=== PATIENT | female | born 1945 | race Caucasian/White ===

== ENCOUNTER 2022-07-29 09:37 | Inpatient (IN) ==
--- NOTE | 2022-07-29 10:01 | Emergency Department Note ---
History of Present Illness General Chief complaint: Stroke/CVA Symptoms Stated complaint: STROKE SYMPTOMS Time Seen by Provider: 07/29/22 09:46 Source: patient and family (Son at bedside) History of Present Illness Provider complaint: Slurred speech Onset (ago): minute(s) 45 77-year-old female presents emergency department for slurred speech. Patient reports she has been having headache. Son reports of 45 minutes ago she started slurring her speech. Patient reports that on she was having a headache and slurred speech. They report that they went to [facility] where she had CAT scans and MRI done which were negative and they discharged her with a diagnosis of TIA. Patient reports she has been having headaches since . No fevers. No trauma. No falls. No blood thinners. Allergies Allergy/AdvReac Type Severity Reaction Status Date / Time No Known Allergies Allergy Unverified 07/29/22 13:09 Past Med/Surg History Medical History HTN (hypertension) Leukemia No pertinent family history TIA (transient ischemic attack) Surgical History H/O bone marrow transplant Social History Smoking Status: Never smoker Hx Alcohol Use: No Hx Substance Use: No Preferred Language: Albanian Communication Ability: Effective Technical Associate Required: No Beliefs That Will Affect Care: None Current Living Situation: Alone Feels Safe at Home: Yes Safety Concerns: Feels Safe At This Time Assistive Devices: None Review of Systems A total of 10 systems reviewed and were otherwise negative Physical Exam Vital Signs Vital Signs - 24 hr 07/29/22 10:05 07/29/22 10:10 07/29/22 09:54 Temperature 36.8 C Temperature Source Oral Pulse Rate 76 Pulse Rate from SpO2 Sensor Respiratory Rate 18 16 21 Respiratory Effort / Characteristics Non-Labored Non-Labored Spontaneous Respiratory Depth Normal Normal Respiratory Pattern Regular Blood Pressure 146/78 H Blood Pressure [Left Arm] 169/74 H Blood Pressure Mean 100 Blood Pressure Mean [Left Arm] 105 Blood Pressure Position Lying Blood Pressure Position [Left Arm] Lying Pulse Oximetry 97 97 Oxygen Delivery Method Room Air Room Air Sepsis Recent Fever Within 48 Hours No Sepsis New/Unexplained Change in Mental Status N/A Sepsis Action Taken by Nursing No Action Required 07/29/22 10:10 07/29/22 10:11 07/29/22 10:11 Temperature Temperature Source Pulse Rate 69 Pulse Rate from SpO2 Sensor 70 Respiratory Rate 15 17 Respiratory Effort / Characteristics Respiratory Depth Respiratory Pattern Blood Pressure 169/74 H Blood Pressure [Left Arm] Blood Pressure Mean 105 Blood Pressure Mean [Left Arm] Blood Pressure Position Blood Pressure Position [Left Arm] Pulse Oximetry 95 Oxygen Delivery Method Sepsis Recent Fever Within 48 Hours Sepsis New/Unexplained Change in Mental Status Sepsis Action Taken by Nursing 07/29/22 11:11 07/29/22 10:20 07/29/22 10:30 Temperature Temperature Source Pulse Rate 72 76 Pulse Rate from SpO2 Sensor Respiratory Rate 21 20 Respiratory Effort / Characteristics Respiratory Depth Respiratory Pattern Blood Pressure Blood Pressure [Left Arm] 159/119 H Blood Pressure Mean Blood Pressure Mean [Left Arm] 132 Blood Pressure Position Blood Pressure Position [Left Arm] Pulse Oximetry Oxygen Delivery Method Sepsis Recent Fever Within 48 Hours Sepsis New/Unexplained Change in Mental Status Sepsis Action Taken by Nursing 07/29/22 10:39 07/29/22 10:39 07/29/22 10:40 Temperature Temperature Source Pulse Rate 70 68 Pulse Rate from SpO2 Sensor 70 68 Respiratory Rate 21 20 Respiratory Effort / Characteristics Respiratory Depth Respiratory Pattern Blood Pressure 167/102 H Blood Pressure [Left Arm] Blood Pressure Mean 123 Blood Pressure Mean [Left Arm] Blood Pressure Position Blood Pressure Position [Left Arm] Pulse Oximetry 93 96 Oxygen Delivery Method Sepsis Recent Fever Within 48 Hours Sepsis New/Unexplained Change in Mental Status Sepsis Action Taken by Nursing 07/29/22 10:50 07/29/22 10:58 07/29/22 10:58 Temperature Temperature Source Pulse Rate 72 75 Pulse Rate from SpO2 Sensor 71 75 Respiratory Rate 19 25 H Respiratory Effort / Characteristics Respiratory Depth Respiratory Pattern Blood Pressure 171/101 H Blood Pressure [Left Arm] Blood Pressure Mean 124 Blood Pressure Mean [Left Arm] Blood Pressure Position Blood Pressure Position [Left Arm] Pulse Oximetry 94 94 Oxygen Delivery Method Sepsis Recent Fever Within 48 Hours Sepsis New/Unexplained Change in Mental Status Sepsis Action Taken by Nursing 07/29/22 11:00 07/29/22 11:00 07/29/22 11:04 Temperature Temperature Source Pulse Rate 71 Pulse Rate from SpO2 Sensor 72 Respiratory Rate 21 Respiratory Effort / Characteristics Respiratory Depth Respiratory Pattern Blood Pressure 170/102 H 154/91 H Blood Pressure [Left Arm] Blood Pressure Mean 124 112 Blood Pressure Mean [Left Arm] Blood Pressure Position Blood Pressure Position [Left Arm] Pulse Oximetry 95 Oxygen Delivery Method Sepsis Recent Fever Within 48 Hours Sepsis New/Unexplained Change in Mental Status Sepsis Action Taken by Nursing 07/29/22 11:04 07/29/22 11:10 07/29/22 11:00 Temperature Temperature Source Pulse Rate 76 71 Pulse Rate from SpO2 Sensor 75 72 Respiratory Rate 22 16 Respiratory Effort / Characteristics Respiratory Depth Respiratory Pattern Blood Pressure Blood Pressure [Left Arm] Blood Pressure Mean Blood Pressure Mean [Left Arm] Blood Pressure Position Blood Pressure Position [Left Arm] Pulse Oximetry 93 94 Oxygen Delivery Method Room Air Sepsis Recent Fever Within 48 Hours Sepsis New/Unexplained Change in Mental Status Sepsis Action Taken by Nursing 07/29/22 11:11 07/29/22 11:11 07/29/22 11:15 Temperature Temperature Source Pulse Rate 72 Pulse Rate from SpO2 Sensor 71 Respiratory Rate 18 Respiratory Effort / Characteristics Respiratory Depth Respiratory Pattern Blood Pressure 159/119 H 164/99 H Blood Pressure [Left Arm] Blood Pressure Mean 132 120 Blood Pressure Mean [Left Arm] Blood Pressure Position Blood Pressure Position [Left Arm] Pulse Oximetry 94 Oxygen Delivery Method Sepsis Recent Fever Within 48 Hours Sepsis New/Unexplained Change in Mental Status Sepsis Action Taken by Nursing 07/29/22 11:15 07/29/22 11:30 07/29/22 11:30 Temperature Temperature Source Pulse Rate 70 72 Pulse Rate from SpO2 Sensor 71 70 Respiratory Rate 15 24 Respiratory Effort / Characteristics Respiratory Depth Respiratory Pattern Blood Pressure 169/105 H Blood Pressure [Left Arm] Blood Pressure Mean 126 Blood Pressure Mean [Left Arm] Blood Pressure Position Blood Pressure Position [Left Arm] Pulse Oximetry 94 95 93 Oxygen Delivery Method Sepsis Recent Fever Within 48 Hours Sepsis New/Unexplained Change in Mental Status Sepsis Action Taken by Nursing 07/29/22 11:45 07/29/22 12:00 Temperature 36.9 C 36.8 C Temperature Source Oral Oral Pulse Rate Pulse Rate from SpO2 Sensor Respiratory Rate 18 18 Respiratory Effort / Characteristics Non-Labored Non-Labored Respiratory Depth Normal Normal Respiratory Pattern Regular Regular Blood Pressure Blood Pressure [Left Arm] 167/98 H 102/76 Blood Pressure Mean Blood Pressure Mean [Left Arm] 121 84 Blood Pressure Position Blood Pressure Position [Left Arm] Lying Sitting Pulse Oximetry 97 95 Oxygen Delivery Method Room Air Sepsis Recent Fever Within 48 Hours Sepsis New/Unexplained Change in Mental Status Sepsis Action Taken by Nursing Physical Exam HENT: Exam performed. -Head: Normocephalic and atraumatic. -Right Ear: External ear normal. No mastoid tenderness. -Left Ear: External ear normal. No mastoid tenderness. -Mouth/Throat: The oropharynx is clear and moist. No trismus in the jaw. No dental abscesses or uvula swelling. No oropharyngeal exudate or tonsillar abscesses. EYES: Conjunctivae and EOM are normal. Pupils are equal, round, and reactive to light. Right eye exhibits no discharge. Left eye exhibits no discharge. No scleral icterus. NECK: Normal range of motion. Neck supple. No JVD present. No spinous process tenderness present. No carotid bruit present. No rigidity. No tracheal deviation and normal range of motion present. No Brudzinski's sign and no Kernig's sign noted. CV: Normal rate, regular rhythm, normal heart sounds and intact distal pulses. There is no peripheral edema. Palpable radial pulses bue. PULM/CHEST: Effort normal and breath sounds normal. No respiratory distress. No stridor. She has no wheezes. She has no rales. -Chest Wall: She exhibits no tenderness. ABD: The abdomen is soft. LYMPH: No cervical adenopathy. NEURO: NIHSS: 2 (9:1, 10:1) Course Course 0946: The patient was evaluated in room B3. A complete history and physical exam was performed Cardiac monitoring: An order was placed for continuous cardiac monitoring. The monitor shows a rate of 80 with sinus rhythm Code stroke called for the patient. Administered Medications Discontinued Medications Tenecteplase 21 mg/ Syringe 4.2 mls @ 50.4 mls/min IV NOW ONE; Protocol Stop: 07/29/22 11:10 Last Admin: 07/29/22 11:04 Dose: 50.4 mls/min Documented By: ANAIS Co-signed By: NELIDA Ioversol (Optiray 320 500ml) 105 ml IV ONCE ONE Stop: 07/29/22 10:15 Last Admin: 07/29/22 10:14 Dose: 105 ml Documented By: MATTHEW Labetalol HCl (Labetalol Hcl Iv 5 Mg/Ml 20ml) Confirm Administered Dose 5 mg IV .STK-MED ONE Stop: 07/29/22 10:59 Last Admin: 07/29/22 11:00 Dose: 10 mg Documented By: NELIDA Co-signed By: JOSE Labetalol HCl (Labetalol Hcl Iv 5 Mg/Ml 20ml) 10 mg IV NOW STA Stop: 07/29/22 11:00 Last Admin: 07/29/22 11:19 Dose: Not Given Documented By: NELIDA Sodium Chloride (Sodium Chloride 0.9% 10ml Flush) 20 ml IV NOW STA Stop: 07/29/22 11:00 Last Admin: 07/29/22 11:05 Dose: 20 ml Documented By: JOSE Critical Care Time Critical Care Time: Yes Total Critical Care Time: 57 I have personally spent greater than 57 minutes of critical care time in the direct management of this patient. This includes bedside care, interpretation of diagnostic studies, and testing, discussion with consultants, patient, and family members, and other required patient management activities. This 57 minutes is in excess of all separately billable procedures. Medical Decision Making Laboratory Data Result diagrams: 07/29/22 09:57 07/29/22 09:57 Lab Results 07/29/22 07/29/22 07/29/22 Range/Units 09:52 09:57 09:57 WBC 9.88 (4.8-10.8) K/ul RBC 4.31 (3.93-5.22) M/uL Hgb 14.0 (12.0-16.0) g/dl Hct 43.6 (34.1-44.9) % MCV 101.2 H (80.0-100.0) fL MCH 32.5 (25.0-34.0) pg MCHC 32.1 (32.0-36.0) g/dL RDW Std Deviation 56.1 H (36.4-46.3) fL RDW Coeff of Karl 14.9 H (11.5-14.5) % Plt Count 177 (130-400) K/uL MPV 11.6 (9.4-12.3) fL Immature Gran % (Auto) 3.7 % Neut % (Auto) 73.5 % Lymph % (Auto) 10.5 % Ponce % (Auto) 9.2 % Eos % (Auto) 2.7 % Baso % (Auto) 0.4 % Neut # (Auto) 7.25 H (1.4-6.5) K/uL Lymph # (Auto) 1.04 L (1.2-3.4) K/uL Ponce # (Auto) 0.91 H (0.24-0.82) K/uL Eos # (Auto) 0.27 (0-0.50) K/uL Baso # (Auto) 0.04 (0-0.2) K/uL Immature Gran # (Auto) 0.37 H (0.00-0.02) K/uL PT (9.0-12.0) Seconds INR (0.9-1.1) APTT (21.0-31.0) Seconds PTT Ratio Sodium (136-145) mmol/L Potassium (3.5-5.1) mmol/L Chloride (98-107) mmol/L Carbon Dioxide (21-32) mmol/L Anion Gap (3-11) BUN (6-23) mg/dl Creatinine (0.6-1.2) mg/dl Est Cr Clr Drug Dosing ml/min Est GFR ( Amer) ml/min Est GFR (Non-Af Amer) ml/min BUN/Creatinine Ratio (10-20) Glucose (70-99(Fasting)) mg/dl POC Glucose 274 H (70-99) mg/dl Calcium (8.5-10.1) mg/dl Magnesium (1.7-2.4) mg/dl Total Bilirubin (0.2-1.0) mg/dl AST (13-39) U/L ALT (7-52) U/L Alkaline Phosphatase (34-104) U/L Troponin I High Sens (0-14) pg/ml Total Protein (6.0-8.3) gm/dl Albumin (3.4-5.0) gm/dl Globulin (2.5-4.0) gm/dl Albumin/Globulin Ratio (0.9-2) Blood Type AB Positive Antibody Screen NEGATIVE 07/29/22 07/29/22 Range/Units 09:57 09:57 WBC (4.8-10.8) K/ul RBC (3.93-5.22) M/uL Hgb (12.0-16.0) g/dl Hct (34.1-44.9) % MCV (80.0-100.0) fL MCH (25.0-34.0) pg MCHC (32.0-36.0) g/dL RDW Std Deviation (36.4-46.3) fL RDW Coeff of Karl (11.5-14.5) % Plt Count (130-400) K/uL MPV (9.4-12.3) fL Immature Gran % (Auto) % Neut % (Auto) % Lymph % (Auto) % Ponce % (Auto) % Eos % (Auto) % Baso % (Auto) % Neut # (Auto) (1.4-6.5) K/uL Lymph # (Auto) (1.2-3.4) K/uL Ponce # (Auto) (0.24-0.82) K/uL Eos # (Auto) (0-0.50) K/uL Baso # (Auto) (0-0.2) K/uL Immature Gran # (Auto) (0.00-0.02) K/uL PT 11.2 (9.0-12.0) Seconds INR 1.1 (0.9-1.1) APTT 27.3 (21.0-31.0) Seconds PTT Ratio 1.0 Sodium 137 (136-145) mmol/L Potassium 4.3 (3.5-5.1) mmol/L Chloride 104 (98-107) mmol/L Carbon Dioxide 21 (21-32) mmol/L Anion Gap 12 H (3-11) BUN 24 H (6-23) mg/dl Creatinine 1.96 H (0.6-1.2) mg/dl Est Cr Clr Drug Dosing 27.9 ml/min Est GFR ( Amer) 28.3 ml/min Est GFR (Non-Af Amer) 24.4 ml/min BUN/Creatinine Ratio 12.2 (10-20) Glucose 259 H (70-99(Fasting)) mg/dl POC Glucose (70-99) mg/dl Calcium 9.4 (8.5-10.1) mg/dl Magnesium 1.8 (1.7-2.4) mg/dl Total Bilirubin 1.0 (0.2-1.0) mg/dl AST 36 (13-39) U/L ALT 22 (7-52) U/L Alkaline Phosphatase 54 (34-104) U/L Troponin I High Sens 13.3 (0-14) pg/ml Total Protein 6.7 (6.0-8.3) gm/dl Albumin 4.3 (3.4-5.0) gm/dl Globulin 2.4 L (2.5-4.0) gm/dl Albumin/Globulin Ratio 1.8 (0.9-2) Blood Type Antibody Screen Imaging Data Radiologist's Impression: Chest X-Ray 07/29/22 09:52 XR chest 1V portable HISTORY: 77 years-old Female Stroke Like Symptoms acute strokelike symptoms COMPARISON: CTA neck of same day TECHNIQUE: Portable AP view of the chest FINDINGS: Cardiomediastinal and hilar silhouettes are within normal limits. Atherosclerosis of the aorta. No pneumothorax, pleural effusion, airspace consolidation or overt pulmonary edema. Degenerative changes of the shoulders and spine. Surgical anchor of the left humeral head. IMPRESSION: No acute process. ACT 112: Negative or not required by law. The above report was generated using voice recognition software. It may contain grammatical, syntax or spelling errors. Electronically signed by: Caleb Poe M.D. 07/29/2022 11:[address] 07/29/22 09:52 CT head/brain wo con CLINICAL HISTORY: 77 years-old Female with Stroke Like Symptoms. Acute strokelike symptoms TECHNIQUE: Multiple axial CT images of the head were obtained without contrast. A dose lowering technique was utilized adhering to the principles of ALARA. COMPARISON: CTA had and neck of same day FINDINGS: No acute intracranial hemorrhage, midline shift, intracranial mass, hydrocephalus, territorial ischemia or abnormal extra-axial collection. White matter hypodensities are suggestive of chronic microvascular ischemic disease. Calcifications of the falx cerebri. The calvarium is intact. Prior bilateral lens repair. Surgical anchor within the left humeral head. The paranasal sinuses, mastoid air cells, and middle ear cavities are clear. IMPRESSION: No acute intracranial abnormality. ACT 112: Negative or not required by law. The above report was generated using voice recognition software. It may contain grammatical, syntax or spelling errors. Electronically signed by: Caleb Poe M.D. 07/29/2022 10:43 AM Head CTA 07/29/22 09:52 CT angio neck with con, CT angio head w con CLINICAL HISTORY: 77 years-old Female with Stroke Like Symptoms. Acute strokelike symptoms COMPARISON STUDY: Head CT of same day TECHNIQUE: Following the IV administration of 105 amount of Optiray, CT angiogram of the head and neck was performed from the aortic arch to the skull apex. Images are reviewed in the axial, sagittal, and coronal planes. 3-D MIPS images are created and assessed. IV contrast was administered without complication. All measurements were calculated based on NASCET criteria. A dose lowering technique was utilized adhering to the principles of ALARA. CT DOSE: 1137.74 mGy.cm FINDINGS: Atherosclerosis of the thoracic aortic arch. Patency of the innominate and imaged subclavian arteries. The common carotid arteries are widely patent. There is mild atherosclerotic plaque of the right carotid bulb resulting in less than 50% stenosis of the proximal right ICA. The middle and anterior cerebral arteries are widely patent. Dominant left vertebral artery. Duplicated V1 and proximal V2 segments of the right vertebral artery: 4 may single vertebral artery at the level of C4. The basilar and posterior cerebral arteries are p atent. Mild luminal narrowing of the P1 segment of the right posterior cerebral artery. Cerebral venous sinuses are patent. No abnormal intracranial enhancement identified. No pneumothorax. The lung apices appear clear. Unremarkable soft tissues. Degenerative changes of the cervical spine. IMPRESSION:Unremarkable CTA of the head and neck. ACT 112: Negative or not required by law. The above report was generated using voice recognition software. It may contain grammatical, syntax or spelling errors. Electronically signed by: Caleb oPe M.D. 07/29/2022 10:43 AM Neck CTA 07/29/22 09:52 CT angio neck with con, CT angio head w con CLINICAL HISTORY: 77 years-old Female with Stroke Like Symptoms. Acute strokelike symptoms COMPARISON STUDY: Head CT of same day TECHNIQUE: Following the IV administration of 105 amount of Optiray, CT angiogram of the head and neck was performed from the aortic arch to the skull apex. Images are reviewed in the axial, sagittal, and coronal planes. 3-D MIPS images are created and assessed. IV contrast was administered without complication. All measurements were calculated based on NASCET criteria. A dose lowering technique was utilized adhering to the principles of ALARA. CT DOSE: 1137.74 mGy.cm FINDINGS: Atherosclerosis of the thoracic aortic arch. Patency of the innominate and imaged subclavian arteries. The common carotid arteries are widely patent. There is mild atherosclerotic plaque of the right carotid bulb resulting in less than 50% stenosis of the proximal right ICA. The middle and anterior cerebral arteries are widely patent. Dominant left vertebral artery. Duplicated V1 and proximal V2 segments of the right vertebral artery: 4 may single vertebral artery at the level of C4. The basilar and posterior cerebral arteries are patent. Mild luminal narrowing of the P1 segment of the right posterior cerebral artery. Cerebral venous sinuses are patent. No abnormal intracranial enhancement identified. No pneumothorax. The lung apices appear clear. Unremarkable soft tissues. Degenerative changes of the cervical spine. IMPRESSION:Unremarkable CTA of the head and neck. ACT 112: Negative or not required by law. The above report was generated using voice recognition software. It may contain grammatical, syntax or spelling errors. Electronically signed by: Caleb Poe M.D. 07/29/2022 10:43 AM ECG Data Indication: + other (cva) Rate (beats per minute): 70 Rhythm: + normal sinus ECG ST segments: + Normal ST segments Additional Comments: NC 202 QRS 138 QTC 476. Left bundle branch block present. sgarbosa negative MDM Narrative Code stroke was called for the patient on arrival. Patient was evaluated by stroke telehealth Dr. Dr. Yeh. There was some significant delay due to their being electronic issues with cardiac not working in the telestroke doctor having difficulties accessing the CT images and reports. There is also an extended period of time however waiting for platelet count given the patient's history of lymphoma. The CT of the head CTA of the head and neck eventually did come back negative. Telestroke doctor did spend a lot of time discussing with the family the risks and benefits of TNKase. Family discussed for quite some time amongst himself if they want to proceed with the TNKase and eventually were consented by the telestroke doctor for TNKase. TNKase was ordered and 10 mg of labetalol were also ordered for the patient. Patient will be admitted to the [facility] team and replaced in the ICU. Impression & Plan CVA (cerebral vascular accident) Discharge Plan Visit Data Chief Complaint: Stroke/CVA Symptoms Stated Complaint: STROKE SYMPTOMS ED Provider: Roberth Hendrix Discharge Problem: CVA (cerebral vascular accident) Patient Disposition: Admitted As Inpatient Discharge Instructions Interventions: ED Discharge Assessment Last Done: 07/29/22 12:30
[2022-07-29 10:09] LABS: Basophils # (auto) 0.04 K/uL (0-0.2); Basophils % (auto) 0.4 %; Eosinophils # (auto) 0.27 K/uL (0-0.50); Eosinophils % (auto) 2.7 %; Hematocrit (blood only) 43.6 % (34.1-44.9); Immature Granulocytes # (auto) 0.37 K/uL (0.00-0.02); Immature Granulocytes % (auto) 3.7 %; Lymphocytes # (auto) 1.04 K/uL (1.2-3.4); Lymphocytes % (auto) 10.5 %; Mean Corpuscular Hemoglobin 32.5 pg (25.0-34.0); Mean Corpuscular Hgb Conc 32.1 g/dL (32.0-36.0); Mean Corpuscular Volume 101.2 fL (80.0-100.0); Mean Platelet Volume 11.6 fL (9.4-12.3); Monocytes # (auto) 0.91 K/uL (0.24-0.82); Monocytes % (auto) 9.2 %; Neutrophils # (auto) 7.25 K/uL (1.4-6.5); Neutrophils % (auto) 73.5 %; Platelet Count 177 K/uL (130-400); RDW Coefficient of Variation 14.9 % (11.5-14.5); RDW Standard Deviation 56.1 fL (36.4-46.3); Red Blood Count 4.31 M/uL (3.93-5.22); White Blood Count 9.88 K/ul (4.8-10.8)
[2022-07-29] MEDS ORDERED: OPTIRAY 320 500ml IV ONE (10:14)
[2022-07-29 10:24] LABS: INR 1.1 (0.9-1.1); Partial Thromboplastin Time 27.3 Seconds (21.0-31.0); Prothrombin Time 11.2 Seconds (9.0-12.0)
[2022-07-29 10:35] LABS: Troponin I High Sensitivity 13.3 pg/ml (0-14)
--- NOTE | 2022-07-29 10:54 | CT Scan Report ---
CT angio neck with con, CT angio head w con CLINICAL HISTORY: 77 years-old Female with Stroke Like Symptoms. Acute strokelike symptoms COMPARISON STUDY: Head CT of same day TECHNIQUE: Following the IV administration of 105 amount of Optiray, CT angiogram of the head and nec k was performed from the aortic arch to the skull apex. Images are reviewed in the axial, sagittal, a nd coronal planes. 3-D MIPS images are created and assessed. IV contrast was administered without com plication. All measurements were calculated based on NASCET criteria. A dose lowering technique was utilized adhering to the principles of ALARA. CT DOSE: 1137.74 mGy.cm FINDINGS: Atherosclerosis of the thoracic aortic arch. Patency of the innominate and imaged subclavian arteries . The common carotid arteries are widely patent. There is mild atherosclerotic plaque of the right ca rotid bulb resulting in less than 50% stenosis of the proximal right ICA. The middle and anterior cer ebral arteries are widely patent. Dominant left vertebral artery. Duplicated V1 and proximal V2 segme nts of the right vertebral artery: 4 may single vertebral artery at the level of C4. The basilar and posterior cerebral arteries are patent. Mild luminal narrowing of the P1 segment of the right posteri or cerebral artery. Cerebral venous sinuses are patent. No abnormal intracranial enhancement identifi ed. No pneumothorax. The lung apices appear clear. Unremarkable soft tissues. Degenerative changes of the cervical spine. IMPRESSION:Unremarkable CTA of the head and neck. ACT 112: Negative or not required by law. The above report was generated using voice recognition software. It may contain grammatical, syntax o r spelling errors. Electronically signed by: Caleb Poe M.D. 07/29/2022 10:43 AM
--- NOTE | 2022-07-29 10:54 | CT Scan Report ---
CT head/brain wo con CLINICAL HISTORY: 77 years-old Female with Stroke Like Symptoms. Acute strokelike symptoms TECHNIQUE: Multiple axial CT images of the head were obtained without contrast. A dose lowering tech nique was utilized adhering to the principles of ALARA. COMPARISON: CTA had and neck of same day FINDINGS: No acute intracranial hemorrhage, midline shift, intracranial mass, hydrocephalus, territorial ischem ia or abnormal extra-axial collection. White matter hypodensities are suggestive of chronic microvasc ular ischemic disease. Calcifications of the falx cerebri. The calvarium is intact. Prior bilateral lens repair. Surgical anchor within the left humeral head. T he paranasal sinuses, mastoid air cells, and middle ear cavities are clear. IMPRESSION: No acute intracranial abnormality. ACT 112: Negative or not required by law. The above report was generated using voice recognition software. It may contain grammatical, syntax o r spelling errors. Electronically signed by: Caleb Poe M.D. 07/29/2022 10:43 AM
[2022-07-29 10:56] LABS: Albumin Globulin Ratio 1.8 (0.9-2); Albumin Level 4.3 gm/dl (3.4-5.0); BUN Creatinine Ratio 12.2 (10-20); Calcium 9.4 mg/dl (8.5-10.1); Creatinine Clr Calc Pharmacy 27.9 ml/min; Est GFR (African American) 28.3 ml/min; Est GFR (Non-African American) 24.4 ml/min; Globulin 2.4 gm/dl (2.5-4.0); Magnesium 1.8 mg/dl (1.7-2.4); Potassium 4.3 mmol/L (3.5-5.1); Total Protein 6.7 gm/dl (6.0-8.3)
[2022-07-29] MEDS ORDERED: LABETALOL HCL IV 5 MG/ML 20ML IV ONE (10:58)
[2022-07-29] MEDS ORDERED: SODIUM CHLORIDE 0.9% 10ML FLUSH IV STA (10:59)
[2022-07-29] MEDS ORDERED: LABETALOL HCL IV 5 MG/ML 20ML IV STA (10:59)
[2022-07-29] MEDS ORDERED: STAT IV STA (10:59)
[2022-07-29] MEDS ORDERED: No Aspirin within 24hrs of THROMBOLYTIC-Stroke PO SCH (11:00)
[2022-07-29] MEDS ORDERED: TENECTEPLASE 21 MG in SYRINGE 0 ML IV ONE (11:09)
--- NOTE | 2022-07-29 11:16 | History & Physical Report ---
Date of Service July 29, 2022 Assessment & Plan (1) CVA (cerebral vascular accident): Plan: LKW initially reported to be 7:30 AM, 9:10 AM Admitted to ICU status post TPA. Head CT without contrast 24 hours s/p TPA administration to evaluate for hemorrhagic stroke conversion and/or with any neurological changes. MRI, routine, tomorrow. Echo in a.m. CBC, BMP, HbA1c, PT/INR, lipid panel in a.m. * Patient observed overnight at [facility] in ED 07/26-07/27 for TIA--working on obtaining records of visit however expect a delay in obtaining these as medical record staff are not there today and previous visits that are > 72 hours in the past cannot be accessed and transferred for our records. N.p.o. for now--did pass bedside dysphagia screen in ED. PT, OT, ST to evaluate in a.m. Labetalol 10 mg every 15 IV as needed, defer to ICU for continued IV boluses versus drip, goal SBP < 180, DBP <100 unless stated otherwise emergency services professional. Avoid hypotension, hypoglycemia. Frequent NIH/neurochecks. CTA of head and neck as above, no significant stenosis. Prevention measures: Start aspirin appropriate; statin therapy is appropriate, BP control. Telemetry for 24 hours, evaluate for episodes of atrial fibrillation. (2) HTN (hypertension): Plan: CORPORATE RESPONSIBILITY OFFICER--> Atenolol 25 mg daily. (3) Leukemia: Plan: History of, s/p bone marrow transplant in 2014. In remission, follows with [place] oncologist every 6 months for labs, routine follow-up. Plan - Admitted to ICU s/p TNK. - SCDs; chemoppx deferred due to TNKase. - Full Code. History of Present Illness Chief Complaint: slurred speech, facial droop this AM Primary Care Provider: NO PCP Mary Ann Louie is a 77-year-old female with past medical history significant for leukemia s/p bone marrow transplant 5 years ago currently in remission, hypertension, and TIA earlier this week who presents today with complaints of slurred speech . 3 days ago on she had a left frontal headache and slurred speech and was seen at [facility]. She was kept overnight for observation in the ED, CT scan and MRI were negative for CVA. She continued to have a headache, now located posteriorly with associated nausea and mild dizziness on occasion, and had an episode of facial droop and slurred speech this morning. LKW 0730 this morning, patient was speaking with her family on the phone and seemed in her normal state of health, and then around [id number] is 1 slurred speech was noted. Describes a sense of knowing what she wants to say, but not able to "use her words ", more consistent with a dysarthria than an apraxia or aphasia. Without any numbness, weakness, tingling. No swallowing difficulties, visual changes. At the time of my visit, she feels her speech is near her baseline. Telestroke neurologist was consulted, recommending TNKase, which is administered at 1104. She presented today hypertensive, SBP [id number], DBP 70-120 since arrival, she did receive 5 mg IV labetalol at 1100. Head CT negative for hemorrhage, territorial ischemia or extra-axial collection. Head/neck CTA unremarkable. Labs significant for creatinine 1.96, GFR 24, no baseline labs for comparison. Glucose elevated to 259. CBC unremarkable, without electrolyte abnormalities or transaminitis. Trope 13.3. Allergies Allergy/AdvReac Type Severity Reaction Status Date / Time No Known Allergies Allergy Unverified 07/29/22 13:09 Past Med/Surg History Medical History HTN (hypertension) Leukemia No pertinent family history TIA (transient ischemic attack) Surgical History H/O bone marrow transplant Social History Smoking Status: Never smoker Hx Alcohol Use: No Hx Substance Use: No Preferred Language: Korean Communication Ability: Effective Senior Industrial Engineer Required: No Beliefs That Will Affect Care: None Current Living Situation: Alone Feels Safe at Home: Yes Safety Concerns: Feels Safe At This Time Assistive Devices: None Review of Systems Review of Systems: Constitutional: No fever/chills, weakness, fatigue, myalgias, anorexia, night sweats Eyes: No diplopia, no worsening or blurred vision ENT: normal hearing, no trouble swallowing Respiratory: No cough, sputum, dyspnea at rest or on exertion Cardiovascular: No chest pain, tightness or palpitations Abdomen: No pain, nausea, vomiting, diarrhea or constipation : Denies dysuria, hematuria, increased urgency/frequency, urinary retention Musculoskeletal: No joint pain, calf pain, swelling Neurologic: slurred speech, now resolved; posterior headache, now resolved; No weakness, numbness/tingling, or balance problems Psychiatric: No anxiety or depression Skin: No rash or itch Physical Exam Physical Exam: NIH 1 s/p TNK: Has some RLE ataxia, speech clear and n onsensical; no noted deficits noted General: awake, alert, no apparent distress Head: Normocephalic, atraumatic ENT: PERRL, EOMI, no pharyngeal exudate, mucous membranes moist Chest: Clear to auscultation, on room air, no adventitious breath sounds Cardiac: Regular rate and rhythm, no murmur, no JVD, normal peripheral pulses, good capillary refill Abdominal: NABS x 4 quadrants, soft, nontender to palpation, no rebound, guarding or tenderness Extremities: Normal inspection, no peripheral edema or erythema, calfs nontender to palpation Psych: Normal mood and affect Neuro: AAO x 3, strength intact bilaterally and rated 5/5, no motor deficits, speech is clear, no peripheral sensory deficits Skin: no rash or erythema Results & Data Results & Data ([facility]) Vital Signs (Past 12 Hours) Vital Signs Temp Pulse Resp BP BP Pulse Ox O2 Del Method 07/29/22 10:11 169/74 H 07/29/22 10:11 69 17 95 07/29/22 10:10 15 07/29/22 09:54 76 21 07/29/22 10:10 16 169/74 H 97 Room Air 07/29/22 10:05 36.8 C 18 146/78 H 97 Room Air Laboratory Results Abnormal lab results 07/29/22 07/29/22 07/29/22 Range/Units 09:52 09:57 09:57 MCV 101.2 H (80.0-100.0) fL RDW Std Deviation 56.1 H (36.4-46.3) fL RDW Coeff of Karl 14.9 H (11.5-14.5) % Neut # (Auto) 7.25 H (1.4-6.5) K/uL Lymph # (Auto) 1.04 L (1.2-3.4) K/uL Screven # (Auto) 0.91 H (0.24-0.82) K/uL Immature Gran # (Auto) 0.37 H (0.00-0.02) K/uL Anion Gap 12 H (3-11) BUN 24 H (6-23) mg/dl Creatinine 1.96 H (0.6-1.2) mg/dl Glucose 259 H (70-99(Fasting)) mg/dl POC Glucose 274 H (70-99) mg/dl Globulin 2.4 L (2.5-4.0) gm/dl Diagnostic Findings Laboratory Results WBC 9.88 K/ul (4.8-10.8) 07/29/22 09:57 RBC 4.31 M/uL (3.93-5.22) 07/29/22 09:57 Hgb 14.0 g/dl (12.0-16.0) 07/29/22 09:57 Hct 43.6 % (34.1-44.9) 07/29/22 09:57 MCV 101.2 fL (80.0-100.0) H 07/29/22 09:57 MCH 32.5 pg (25.0-34.0) 07/29/22 09:57 MCHC 32.1 g/dL (32.0-36.0) 07/29/22 09:57 RDW Std Deviation 56.1 fL (36.4-46.3) H 07/29/22 09:57 RDW Coeff of Karl 14.9 % (11.5-14.5) H 07/29/22 09:57 Plt Count 177 K/uL (130-400) 07/29/22 09:57 MPV 11.6 fL (9.4-12.3) 07/29/22 09:57 Immature Gran % (Auto) 3.7 % 07/29/22 09:57 Neut % (Auto) 73.5 % 07/29/22 09:57 Lymph % (Auto) 10.5 % 07/29/22 09:57 Screven % (Auto) 9.2 % 07/29/22 09:57 Eos % (Auto) 2.7 % 07/29/22 09:57 Baso % (Auto) 0.4 % 07/29/22 09:57 Neut # (Auto) 7.25 K/uL (1.4-6.5) H 07/29/22 09:57 Lymph # (Auto) 1.04 K/uL (1.2-3.4) L 07/29/22 09:57 Screven # (Auto) 0.91 K/uL (0.24-0.82) H 07/29/22 09:57 Eos # (Auto) 0.27 K/uL (0-0.50) 07/29/22 09:57 Baso # (Auto) 0.04 K/uL (0-0.2) 07/29/22 09:57 Immature Gran # (Auto) 0.37 K/uL (0.00-0.02) H 07/29/22 09:57 PT 11.2 Seconds (9.0-12.0) 07/29/22 09:57 INR 1.1 (0.9-1.1) 07/29/22 09:57 APTT 27.3 Seconds (21.0-31.0) 07/29/22 09:57 PTT Ratio 1.0 07/29/22 09:57 Sodium 137 mmol/L (136-145) 07/29/22 09:57 Potassium 4.3 mmol/L (3.5-5.1) 07/29/22 09:57 Chloride 104 mmol/L (98-107) 07/29/22 09:57 Carbon Dioxide 21 mmol/L (21-32) 07/29/22 09:57 Anion Gap 12 (3-11) H 07/29/22 09:57 BUN 24 mg/dl (6-23) H 07/29/22 09:57 Creatinine 1.96 mg/dl (0.6-1.2) H 07/29/22 09:57 Est Cr Clr Drug Dosing 27.9 ml/min 07/29/22 09:57 Est GFR ( Amer) 28.3 ml/min 07/29/22 09:57 Est GFR (Non-Af Amer) 24.4 ml/min 07/29/22 09:57 BUN/Creatinine Ratio 12.2 (10-20) 07/29/22 09:57 Glucose 259 mg/dl (70-99(Fasting)) H 07/29/22 09:57 POC Glucose 274 mg/dl (70-99) H 07/29/22 09:52 Calcium 9.4 mg/dl (8.5-10.1) 07/29/22 09:57 Magnesium 1.8 mg/dl (1.7-2.4) 07/29/22 09:57 Total Bilirubin 1.0 mg/dl (0.2-1.0) 07/29/22 09:57 AST 36 U/L (13-39) 07/29/22 09:57 ALT 22 U/L (7-52) 07/29/22 09:57 Alkaline Phosphatase 54 U/L (34-104) 07/29/22 09:57 Troponin I High Sens 13.3 pg/ml (0-14) 07/29/22 09:57 Total Protein 6.7 gm/dl (6.0-8.3) 07/29/22 09:57 Albumin 4.3 gm/dl (3.4-5.0) 07/29/22 09:57 Globulin 2.4 gm/dl (2.5-4.0) L 07/29/22 09:57 Albumin/Globulin Ratio 1.8 (0.9-2) 07/29/22 09:57 SARS-CoV-2, RNA, NAAT NEGATIVE (NEGATIVE) 07/29/22 Unknown Blood Type AB Positive 07/29/22 09:57 Antibody Screen NEGATIVE 07/29/22 09:57 Impressions Chest X-Ray 07/29/22 09:52 XR chest 1V portable HISTORY: 77 years-old Female Stroke Like Symptoms acute strokelike symptoms COMPARISON: CTA neck of same day TECHNIQUE: Portable AP view of the chest FINDINGS: Cardiomediastinal and hilar silhouettes are within normal limits. Atherosclerosis of the aorta. No pneumothorax, pleural effusion, airspace consolidation or overt pulmonary edema. Degenerative changes of the shoulders and spine. Surgical anchor of the left humeral head. IMPRESSION: No acute process. ACT 112: Negative or not required by law. The above report was generated using voice recognition software. It may contain grammatical, syntax or spelling errors. Electronically signed by: Caleb Poe M.D. 07/29/2022 11:[address] 07/29/22 09:52 CT head/brain wo con CLINICAL HISTORY: 77 years-old Female with Stroke Like Symptoms. Acute strokelike symptoms TECHNIQUE: Multiple axial CT images of the head were obtained without contrast. A dose lowering technique was utilized adhering to the principles of ALARA. COMPARISON: CTA had and neck of same day FINDINGS: No acute intracranial hemorrhage, midline shift, intracranial mass, hydrocephalus, territorial ischemia or abnormal extra-axial collection. White matter hypodensities are suggestive of chronic microvascular ischemic disease. Calcifications of the falx cerebri. The calvarium is intact. Prior bilateral lens repair. Surgical anchor within the left humeral head. The paranasal sinuses, mastoid air cells, and middle ear cavities are clear. IMPRESSION: No acute intracranial abnormality. ACT 112: Negative or not required by law. The above report was generated using voice recognition software. It may contain grammatical, syntax or spelling errors. Electronically signed by: Caleb Poe M.D. 07/29/2022 10:43 AM Head CTA 07/29/22 09:52 CT angio neck with con, CT angio head w con CLINICAL HISTORY: 77 years-old Female with Stroke Like Symptoms. Acute strokelike symptoms COMPARISON STUDY: Head CT of same day TECHNIQUE: Following the IV administration of 105 amount of Optiray, CT angiogram of the head and neck was performed from the aortic arch to the skull apex. Images are reviewed in the axial, sagittal, and coronal planes. 3-D MIPS images are created and assessed. IV contrast was administered without complication. All measurements were calculated based on NASCET criteria. A dose lowering technique was utilized adhering to the principles of ALARA. CT DOSE: 1137.74 mGy.cm FINDINGS: Atherosclerosis of the thoracic aortic arch. Patency of the innominate and imaged subclavian arteries. The common carotid arteries are widely patent. There is mild atherosclerotic plaque of the right carotid bulb resulting in less than 50% stenosis of the proximal right ICA. The middle and anterior cerebral arteries are widely patent. Dominant left vertebral artery. Duplicated V1 and proximal V2 segments of the right vertebral artery: 4 may single vertebral artery at the level of C4. The basilar and posterior cerebral arteries are patent. Mild luminal narrowing of the P1 segment of the right posterior cerebral artery. Cerebral venous sinuses are patent. No abnormal intracranial enhancement identified. No pneumothorax. The lung apices appear clear. Unremarkable soft tissues. Degenerative changes of the cervical spine. IMPRESSION:Unremarkable CTA of the head and neck. ACT 112: Negative or not required by law. The above report was generated using voice recognition software. It may contain grammatical, syntax or spelling errors. Electronically signed by: Caleb Poe M.D. 07/29/2022 10:43 AM Neck CTA 07/29/22 09:52 CT angio neck with con, CT angio head w con CLINICAL HISTORY: 77 years-old Female with Stroke Like Symptoms. Acute strokelike symptoms COMPARISON STUDY: Head CT of same day TECHNIQUE: Following the IV administration of 105 amount of Optiray, CT angiogram of the head and neck was performed from the aortic arch to the skull apex. Images are reviewed in the axial, sagittal, and coronal planes. 3-D MIPS images are created and assessed. IV contrast was administered without complication. All measurements were calculated based on NASCET criteria. A dose lowering technique was utilized adhering to the principles of ALARA. CT DOSE: 1137.74 mGy.cm FINDINGS: Atherosclerosis of the thoracic aortic arch. Patency of the innominate and imaged subclavian arteries. The common carotid arteries are widely patent. There is mild atherosclerotic plaque of the right carotid bulb resulting in less than 50% stenosis of the proximal right ICA. The middle and anterior cerebral arteries are widely patent. Dominant left vertebral artery. Duplicated V1 and proximal V2 segments of the right vertebral artery: 4 may single vertebral artery at the level of C4. The basilar and posterior cerebral arteries are p atent. Mild luminal narrowing of the P1 segment of the right posterior cerebral artery. Cerebral venous sinuses are patent. No abnormal intracranial enhancement identified. No pneumothorax. The lung apices appear clear. Unremarkable soft tissues. Degenerative changes of the cervical spine. IMPRESSION:Unremarkable CTA of the head and neck. ACT 112: Negative or not required by law. The above report was generated using voice recognition software. It may contain grammatical, syntax or spelling errors. Electronically signed by: Caleb Poe M.D. 07/29/2022 10:43 AM ECG Additional Comments: Poor data quality, interpretation may be adversely affected Sinus rhythm with Premature atrial complexes Left bundle branch block Abnormal ECG No previous ECGs available. Code Status & VTE Plan Code Status Full Code. Supervising Physician Co-Signing Physician Notes Patient seen and examined, chart reviewed, case discussed with Luzmaria Carmen and I agree with the assessment and plan as above except as otherwise noted Labs and images reviewed Mary Ann is seen at the bedside post TNKase. She presented as a stroke alert with dysarthria which began this morning. She was recently evaluated at [facility] with a reportedly negative CT and MRI for similar symptoms, diagnosed with TIA and continued on aspirin. Pending records for lipid levels. Last known normal was 730 upon waking up. Initially was reported as 10:00, family clarifies that they talk to her and she was normal at 7:30 in the morning and then she was noted to have dysarthria on the phone subsequently around 830 but her not sure when the deficits started. Patient had significant dysarthria, some reported right-sided facial droop. Initial stroke score of 2. Dysarthria was improving but not resolved at time of telestroke evaluation. Recommendation was to give TNKase given persistent dysarthria symptoms, recent TIA, and timing of onset. TNKase was given at 1104. Patient denies any history of A. fib, coronary disease, tobacco use, hyperlipidemia. Does have hypertension on aspirin and atenolol CORPORATE RESPONSIBILITY OFFICER. No history of bleeding/clotting problems. Post TNKase dysarthria has completely resolved and no facial droop is appreciated at time of hospitalist assessment. Patient is in a normal sinus rhythm. Clinical Engineering Director strength, elbow flexion 5/5 bilaterally. Some subtle right lower extremity weakness noted on subsequent exam but with 5/5 graded strength and intact coordination. Sensation soft touch is intact in hands and feet. Pupils equal and reactive to light and accommodation, vision and hearing intact. Speech is fluent, no receptive or expressive aphasia. CVA s/p TNKase: Presented with dysarthria, right facial droop resolved post TNKase. Prior TIA 4 days CORPORATE RESPONSIBILITY OFFICER. On aspirin CORPORATE RESPONSIBILITY OFFICER. Admit to ICU for post TNKase monitoring protocol. Blood pressure goal less than 180/105. CTA head and neck with less than 50% stenosis of proximal right ICA, patent JEFF, dominant left vertebral, mild luminal narrowing of P1 right OFFAL ROLLER, common carotid widely patent. NIHSS <5, Neuro following. Lipids, A1c pending. Records were requested from [facility], however the ER is not able to see more than 72 hours back and cannot provide these until medical records is open tomorrow Hypertension: Goals as above, did receive 10 mg labetalol just prior to TNKase administration. Subsequent dose ordered but not given. Blood pressure" 167/98 at time of reassessment. Leukemia: S/p bone marrow transplant, doing well, no immunosuppressive's. PG Care Time/CCT Total # of Minutes Spent Total Time Spent with Patient: Total time spent is greater than 50% in coordination of care (as documented) at patient's floor/unit and/or counseling patient: Coding Level of Care Code 95454 Initial Inpt Care Lvl 3 Diagnoses CVA (cerebral vascular accident) I63.9 HTN (hypertension) I10 Leukemia C95.90
--- NOTE | 2022-07-29 11:33 | XRay Report ---
XR chest 1V portable HISTORY: 77 years-old Female Stroke Like Symptoms acute strokelike symptoms COMPARISON: CTA neck of same day TECHNIQUE: Portable AP view of the chest FINDINGS: Cardiomediastinal and hilar silhouettes are within normal limits. Atherosclerosis of the aorta. No pn eumothorax, pleural effusion, airspace consolidation or overt pulmonary edema. Degenerative changes o f the shoulders and spine. Surgical anchor of the left humeral head. IMPRESSION: No acute process. ACT 112: Negative or not required by law. The above report was generated using voice recognition software. It may contain grammatical, syntax o r spelling errors. Electronically signed by: Caleb Poe M.D. 07/29/2022 11:32 AM
[2022-07-29] MEDS ORDERED: PHARMACIST DISCHARGE MED REC CONSULT PRN (12:55)
[2022-07-29] MEDS ORDERED: PNEUMOCOCCAL POLYSACCHARIDES 25 MCG/0.5 ML VIAL/SYR IM ONE (13:41)
[2022-07-29] MEDS ORDERED: INFLUENZA VACCINE HIGH DOSE PF 65+ 0.7 ML SYR IM ONE (13:41)
--- NOTE | 2022-07-29 13:50 | Critical Care Consultation ---
Date of Consultation July 29, 2022 Assessment & Plan (1) Thrombolytic medication administered within last 5 days: (2) CVA (cerebral vascular accident): (3) HTN (hypertension): (4) Cephalgia: Plan Impression: 77-year-old female with headache and strokelike symptoms. Her symptoms have been going on for 3 to 4 days and she had an initial evaluation in [place] which was unrevealing. Due to persistent symptoms, telestroke neurologist recommended thrombolytic administration and the patient is being observed in the ICU for bleeding complications post thrombolytics. Recommendations: 1. Post thrombolytics. We will continue to follow for bleeding complications. Follow-up CT scan will be ordered in 24 hours. If that is negative, she can downgrade to the floor under the care of the hospitalist. 2. Cephalgia: Unclear etiology. Formal neurology consultation is pending. No prior history of migraines. Avoid nonsteroidals. No indication for narcotics. We will see how she responds to Tylenol. Given the chronic nature of her headaches, I do not think repeat imaging is warranted currently unless she develops new neurological symptoms. 3. Hypertension: Continue to maintain blood pressure below 175 systolic. 4. Echocardiogram pending. PT and OT consults will be obtained. Additional recommendations will be based on clinical response to therapy, results of additional diagnostic studies, and input from neurology. The above recommendations and plan were discussed with the patient as well as the bedside critical care nurse and family at bedside History of Present Illness Attending Physician: Mendez Vidal MD History of Present Illness Asked by hospitalist to assist in evaluation management this patient received TNKase in the emergency room for suspected stroke. History is obtained from review electronic medical record as well as discussion with patient. Patient is a 77-year-old female status post pulmonary transplant 5 years ago who is seen 3 days ago with slurred speech frontal headache and [facility]. She was observed in the emergency room with CT scan and MRI which reportedly were negative although I do not have those reports available to review. She continued to have headache and therefore presented to the emergency room here. CT angiogram was unrevealing. CT scan here showed no evidence of hemorrhage. Telestroke consultation was obtained and administration of thrombolytics was recommended. She received TNKase without adverse effect and was admitted to the ICU. Patient continues complain of headaches. She has no prior history of migraines. She is slightly nauseous. Her NIH is unchanged. Her blood pressure is stable. She has no prior history of strokes. 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 Beliefs That Will Affect Care: None Current Living Situation: Alone Feels Safe at Home: Yes Safety Concerns: Feels Safe At This Time Assistive Devices: None Review of Systems Review of Systems: All systems reviewed & are unremarkable except as noted in Subjective Physical Exam Constitutional: WD/WN, vitals as above Neck: trachea midline, no thyromegaly Respiratory: normal respiratory effort, lungs clear to auscultation Cardiovascular: RRR, no murmur, no edema Gastrointestinal (Abdomen): normal bowel sounds, soft, nontender, no hepatosplenomegaly Musculoskeletal: Extremities: extremities normal to inspection Skin: no rashes, warm and dry Neurologic: Nonfocal exam Lymphatic: no cervical lymphadenopathy Results & Data Results & Data ([facility]) Vital Signs (Past 12 Hours) Vital Signs Temp Pulse Pulse Resp BP BP Pulse Ox 07/29/22 13:15 16 170/78 H 95 07/29/22 13:00 17 133/104 H 94 07/29/22 12:45 15 176/84 H 96 07/29/22 13:00 36.6 C 74 14 133/104 H 94 07/29/22 12:30 07/29/22 12:30 36.8 C 18 160/104 H 97 07/29/22 12:15 36.7 C 18 169/104 H 94 07/29/22 12:00 36.8 C 18 102/76 95 07/29/22 11:45 36.9 C 18 167/98 H 97 07/29/22 11:30 72 24 93 07/29/22 11:30 169/105 H 95 07/29/22 11:15 70 15 94 07/29/22 11:15 164/99 H 07/29/22 11:11 72 18 94 07/29/22 11:11 159/119 H 07/29/22 11:00 07/29/22 11:10 71 16 94 07/29/22 11:04 76 22 93 07/29/22 11:04 154/91 H 07/29/22 11:00 71 21 95 07/29/22 11:00 170/102 H 07/29/22 10:58 75 25 H 94 07/29/22 10:58 171/101 H 07/29/22 10:50 72 19 94 07/29/22 10:40 68 20 96 07/29/22 10:39 70 21 93 07/29/22 10:39 167/102 H 07/29/22 10:30 76 20 07/29/22 10:20 72 21 07/29/22 11:11 159/119 H 07/29/22 10:11 169/74 H 07/29/22 10:11 69 17 95 07/29/22 10:10 15 07/29/22 09:54 76 21 07/29/22 10:10 16 169/74 H 97 07/29/22 10:05 36.8 C 18 146/78 H 97 O2 Del Method 07/29/22 13:15 Room Air 07/29/22 13:00 Room Air 07/29/22 12:45 Room Air 07/29/22 13:00 Room Air 07/29/22 12:30 Room Air 07/29/22 12:30 Room Air 07/29/22 12:15 Room Air 07/29/22 12:00 Room Air 07/29/22 11:45 07/29/22 11:30 07/29/22 11:30 07/29/22 11:15 07/29/22 11:15 07/29/22 11:11 07/29/22 11:11 07/29/22 11:00 Room Air 07/29/22 11:10 07/29/22 11:04 07/29/22 11:04 07/29/22 11:00 07/29/22 11:00 07/29/22 10:58 07/29/22 10:58 07/29/22 10:50 07/29/22 10:40 07/29/22 10:39 07/29/22 10:39 07/29/22 10:30 07/29/22 10:20 07/29/22 11:11 07/29/22 10:11 07/29/22 10:11 07/29/22 10:10 07/29/22 09:54 07/29/22 10:10 Room Air 07/29/22 10:05 Room Air Critical Care Results & Data Vital Signs (Past 12 Hours) Vital Signs Temp Pulse Pulse Resp BP BP Pulse Ox 07/29/22 13:15 16 170/78 H 95 07/29/22 13:30 36.7 C 77 20 156/82 H 95 07/29/22 13:00 17 133/104 H 94 07/29/22 12:45 15 176/84 H 96 07/29/22 13:00 36.6 C 74 14 133/104 H 94 07/29/22 12:30 07/29/22 12:30 36.8 C 18 160/104 H 97 07/29/22 12:15 36.7 C 18 169/104 H 94 07/29/22 12:00 36.8 C 18 102/76 95 07/29/22 11:45 36.9 C 18 167/98 H 97 07/29/22 11:30 72 24 93 07/29/22 11:30 169/105 H 95 07/29/22 11:15 70 15 94 07/29/22 11:15 164/99 H 07/29/22 11:11 72 18 94 07/29/22 11:11 159/119 H 07/29/22 11:00 07/29/22 11:10 71 16 94 07/29/22 11:04 76 22 93 07/29/22 11:04 154/91 H 07/29/22 11:00 71 21 95 07/29/22 11:00 170/102 H 07/29/22 10:58 75 25 H 94 07/29/22 10:58 171/101 H 07/29/22 10:50 72 19 94 07/29/22 10:40 68 20 96 07/29/22 10:39 70 21 93 07/29/22 10:39 167/102 H 07/29/22 10:30 76 20 07/29/22 10:20 72 21 07/29/22 11:11 159/119 H 07/29/22 10:11 169/74 H 07/29/22 10:11 69 17 95 07/29/22 10:10 15 07/29/22 09:54 76 21 07/29/22 10:10 16 169/74 H 97 07/29/22 10:05 36.8 C 18 146/78 H 97 O2 Del Method 07/29/22 13:15 Room Air 07/29/22 13:30 Room Air 07/29/22 13:00 Room Air 07/29/22 12:45 Room Air 07/29/22 13:00 Room Air 07/29/22 12:30 Room Air 07/29/22 12:30 Room Air 07/29/22 12:15 Room Air 07/29/22 12:00 Room Air 07/29/22 11:45 07/29/22 11:30 07/29/22 11:30 07/29/22 11:15 07/29/22 11:15 07/29/22 11:11 07/29/22 11:11 07/29/22 11:00 Room Air 07/29/22 11:10 07/29/22 11:04 07/29/22 11:04 07/29/22 11:00 07/29/22 11:00 07/29/22 10:58 07/29/22 10:58 07/29/22 10:50 07/29/22 10:40 07/29/22 10:39 07/29/22 10:39 07/29/22 10:30 07/29/22 10:20 07/29/22 11:11 07/29/22 10:11 07/29/22 10:11 07/29/22 10:10 07/29/22 09:54 07/29/22 10:10 Room Air 07/29/22 10:05 Room Air Lab & Micro Results (Past 24 Hours) RBC 4.31 M/uL (3.93-5.22) 07/29/22 WBC 9.88 K/ul (4.8-10.8) 07/29/22 Hgb 14.0 g/dl (12.0-16.0) 07/29/22 Hct 43.6 % (34.1-44.9) 07/29/22 MCV 101.2 fL (80.0-100.0) H 07/29/22 MCH 32.5 pg (25.0-34.0) 07/29/22 MCHC 32.1 g/dL (32.0-36.0) 07/29/22 RDW Standard Deviation 56.1 fL (36.4-46.3) H 07/29/22 RDW Coefficient of Variation 14.9 % (11.5-14.5) H 07/29/22 Plt Count 177 K/uL (130-400) 07/29/22 MPV 11.6 fL (9.4-12.3) 07/29/22 Neutrophils (%) (Auto) 73.5 % 07/29/22 Lymphocytes (%) (Auto) 10.5 % 07/29/22 Monocytes # (Auto) 0.91 K/uL (0.24-0.82) H 07/29/22 Eosinophils # (Auto) 0.27 K/uL (0-0.50) 07/29/22 Immature Granulocyte % (Auto) 3.7 % 07/29/22 Neutrophils # (Auto) 7.25 K/uL (1.4-6.5) H 07/29/22 Lymphocytes # (Auto) 1.04 K/uL (1.2-3.4) L 07/29/22 Monocytes # (Auto) 0.91 K/uL (0.24-0.82) H 07/29/22 Eosinophils # (Auto) 0.27 K/uL (0-0.50) 07/29/22 Basophils # (Auto) 0.04 K/uL (0-0.2) 07/29/22 Immature Granulocyte # (Auto) 0.37 K/uL (0.00-0.02) H 07/29 Na 137 mmol/L (136-145) 07/29/22 K 4.3 mmol/L (3.5-5.1) 07/29/22 Cl 104 mmol/L (98-107) 07/29/22 CO2 21 mmol/L (21-32) 07/29/22 Anion Gap 12 (3-11) H 07/29/22 BUN 24 mg/dl (6-23) H 07/29/22 Creatinine 1.96 mg/dl (0.6-1.2) H 07/29/22 Estimated GFR ( Amer) 28.3 ml/min 07/29/22 Estimated GFR (Non-Af Amer) 24.4 ml/min 07/29/22 BUN/Creatinine Ratio 12.2 (10-20) 07/29/22 Glu 259 mg/dl (70-99(Fasting)) H 07/29/22 Ca 9.4 mg/dl (8.5-10.1) 07/29/22 Total Bilirubin 1.0 mg/dl (0.2-1.0) 07/29/22 AST 36 U/L (13-39) 07/29/22 ALT 22 U/L (7-52) 07/29/22 Alkaline Phosphatase 54 U/L (34-104) 07/29/22 TP 6.7 gm/dl (6.0-8.3) 07/29/22 Albumin 4.3 gm/dl (3.4-5.0) 07/29/22 Globulin 2.4 gm/dl (2.5-4.0) L 07/29/22 Albumin/Globulin Ratio 1.8 (0.9-2) 07/29/22 Mg 1.8 mg/dl (1.7-2.4) 07/29/22 09:57 Calcium Level 9.4 mg/dl (8.5-10.1) 07/29/22 09:57 Prothromb Time International Ratio 1.1 (0.9-1.1) 07/29/22 09:5 7 Diagnostic Findings (Past 24 Hours) Chest X-Ray 07/29/22 09:52 XR chest 1V portable HISTORY: 77 years-old Female Stroke Like Symptoms acute strokelike symptoms COMPARISON: CTA neck of same day TECHNIQUE: Portable AP view of the chest FINDINGS: Cardiomediastinal and hilar silhouettes are within normal limits. Atherosclerosis of the aorta. No pneumothorax, pleural effusion, airspace consolidation or overt pulmonary edema. Degenerative changes of the shoulders and spine. Surgical anchor of the left humeral head. IMPRESSION: No acute process. ACT 112: Negative or not required by law. The above report was generated using voice recognition software. It may contain grammatical, syntax or spelling errors. Electronically signed by: Caleb Poe M.D. 07/29/2022 11:[address] 07/29/22 09:52 CT head/brain wo con CLINICAL HISTORY: 77 years-old Female with Stroke Like Symptoms. Acute strokelike symptoms TECHNIQUE: Multiple axial CT images of the head were obtained without contrast. A dose lowering technique was utilized adhering to the principles of ALARA. COMPARISON: CTA had and neck of same day FINDINGS: No acute intracranial hemorrhage, midline shift, intracranial mass, hydrocephalus, territorial ischemia or abnormal extra-axial collection. White matter hypodensities are suggestive of chronic microvascular ischemic disease. Calcifications of the falx cerebri. The calvarium is intact. Prior bilateral lens repair. Surgical anchor within the left humeral head. The paranasal sinuses, mastoid air cells, and middle ear cavities are clear. IMPRESSION: No acute intracranial abnormality. ACT 112: Negative or not required by law. The above report was generated using voice recognition software. It may contain grammatical, syntax or spelling errors. Electronically signed by: Caleb Poe M.D. 07/29/2022 10:43 AM Head CTA 07/29/22 09:52 CT angio neck with con, CT angio head w con CLINICAL HISTORY: 77 years-old Female with Stroke Like Symptoms. Acute strokelike symptoms COMPARISON STUDY: Head CT of same day TECHNIQUE: Following the IV administration of 105 amount of Optiray, CT angiogram of the head and neck was performed from the aortic arch to the skull apex. Images are reviewed in the axial, sagittal, and coronal planes. 3-D MIPS images are created and assessed. IV contrast was administered without complication. All measurements were calculated based on NASCET criteria. A dose lowering technique was utilized adhering to the principles of ALARA. CT DOSE: 1137.74 mGy.cm FINDINGS: Atherosclerosis of the thoracic aortic arch. Patency of the innominate and imaged subclavian arteries. The common carotid arteries are widely patent. There is mild atherosclerotic plaque of the right carotid bulb resulting in less than 50% stenosis of the proximal right ICA. The middle and anterior cerebral arteries are widely patent. Dominant left vertebral artery. Duplicated V1 and proximal V2 segments of the right vertebral artery: 4 may single vertebral artery at the level of C4. The basilar and posterior cerebral arteries are patent. Mild luminal narrowing of the P1 segment of the right posterior cerebral artery. Cerebral venous sinuses are patent. No abnormal intracranial enhancement identified. No pneumothorax. The lung apices appear clear. Unremarkable soft tissues. Degenerative changes of the cervical spine. IMPRESSION:Unremarkable CTA of the head and neck. ACT 112: Negative or not required by law. The above report was generated using voice recognition software. It may contain grammatical, syntax or spelling errors. Electronically signed by: Caleb Poe M.D. 07/29/2022 10:43 AM Neck CTA 07/29/22 09:52 CT angio neck with con, CT angio head w con CLINICAL HISTORY: 77 years-old Female with Stroke Like Symptoms. Acute strokelike symptoms COMPARISON STUDY: Head CT of same day TECHNIQUE: Following the IV administration of 105 amount of Optiray, CT angiogram of the head and neck was performed from the aortic arch to the skull apex. Images are reviewed in the axial, sagittal, and coronal planes. 3-D MIPS images are created and assessed. IV contrast was administered without complication. All measurements were calculated based on NASCET criteria. A dose lowering technique was utilized adhering to the principles of ALARA. CT DOSE: 1137.74 mGy.cm FINDINGS: Atherosclerosis of the thoracic aortic arch. Patency of the innominate and imaged subclavian arteries. The common carotid arteries are widely patent. There is mild atherosclerotic plaque of the right carotid bulb resulting in less than 50% stenosis of the proximal right ICA. The middle and anterior cerebral arteries are widely patent. Dominant left vertebral artery. Duplicated V1 and proximal V2 segments of the right vertebral artery: 4 may single vertebral artery at the level of C4. The basilar and posterior cerebral arteries are patent. Mild luminal narrowing of the P1 segment of the right posterior cerebral artery. Cerebral venous sinuses are patent. No abnormal intracranial enhancement identified. No pneumothorax. The lung apices appear clear. Unremarkable soft tissues. Degenerative changes of the cervical spine. IMPRESSION:Unremarkable CTA of the head and neck. ACT 112: Negative or not required by law. The above report was generated using voice recognition software. It may contain grammatical, syntax or spelling errors. Electronically signed by: Caleb Poe M.D. 07/29/2022 10:43 AM RT Ventilator Mngmt (Last Documented) Ventilator Ordered Settings Respiratory Rate 20 07/29/22 13:30 Ventilator - PT Measurements Respiratory Rate 20 Coding Level of Care Code 30959 Inpt Consult Level 4 Diagnoses Thrombolytic medication administered within last 5 days Z78.9 CVA (cerebral vascular accident) I63.9 HTN (hypertension) I10 Cephalgia R51.9
--- NOTE | 2022-07-29 15:16 | Magnetic Resonance Report ---
MR brain wo con HISTORY: 77 years-old Female CVA acute strokelike symptoms COMPARISON: Head CT of same day TECHNIQUE: Multiplanar multisequence MRI of the brain was obtained without the use of IV contrast FINDINGS: Security Services Specialist localizer images demonstrate no gross extracranial abnormality. Midline structures are unremark able. No restricted diffusion to suggest acute or subacute infarct. Degenerative changes of the image d cervical spine. No acute intracranial hemorrhage, midline shift, abnormal extra axial collection, h ydrocephalus or intracranial mass. Mild involutional changes with mild to moderate T2/FLAIR throughou t the white matter. Cerebral venous sinuses and major arterial flow voids appear patent. The skull and soft tissues are u nremarkable. Prior bilateral lens repair. Mastoid air cells and paranasal sinuses are clear. IMPRESSION: 1. No acute intracranial abnormality. No acute or subacute infarct. 2. Involutional changes with chronic microvascular ischemic disease. ACT 112: Negative or not required by law. The above report was generated using voice recognition software. It may contain grammatical, syntax o r spelling errors. Electronically signed by: Caleb Poe M.D. 07/29/2022 3:14 PM
--- NOTE | 2022-07-29 16:02 | Neurology Consultation ---
Date of Consultation July 29, 2022 Assessment & Plan (1) Stroke-like symptoms: Impression: The patient has had 2 episodes of expressive speech difficulty, and received TNKase this morning. She has been suffering from unusual, left frontal headache for last 4 days. She denies having similar headaches or diagnosis of migraine attacks in the past. Imaging studies during each events were unremarkable including brain MRIs. Based on negative history, migraine considered unlikely, however, based on negative imaging studies, complex migraine as well as TIA should be considered in differential. Recommendations: We will follow protocol status post thrombolytic treatment. Repeat head CT tomorrow around noon. If head CT shows no hemorrhagic conversion, then the patient should be started on aspirin 81 mg daily. Lipid panel. Goal LDL level is lower than 70. Initiate statin treatment if needed. Close neurological monitoring for next 24 hours in ICU. If the patient stays stable with negative repeat head CT, then she can be transferred to regular floor with telemetric monitoring. ESR and CRP, to investigate for giant cell arteritis. Management of hypertension. First 24 hours, we should keep systolic blood pressure below 180. After first 24 hours, blood pressure should be lowered gradually with goal of lower than 130/80. We should keep blood sugar within normal range. We can start oral feeding now. The patient passed bedside swallow evaluation and has no residual neurological deficit. Speech pathology, physical therapy and Occupational Therapy evaluations. Echocardiogram. If the patient stays stable, she can be discharged home in next 24 hours after completion of stroke work-up. Follow-up with neurology clinic. I will contact with [facility] neurology to set up an appointment. (2) Thrombolytic medication administered within last 5 days: Impression: As seen above. Patient received thrombolytic treatment at 11 AM this morning. (3) Cephalgia: Impression: The patient has no bymbkad-avss-rjn headache syndromes including migraines or associated neurological symptoms to suggest complex migraine. She has been suffering from unusual, left frontal moderate headache, with and without nausea for last 4 days. Complex migraine is considered unlikely based on the patient's negative history, however, based on negative imaging studies, new onset complex migraine should be considered in differential. We should rule out vasculitic process, primarily temporal arteritis. Recommendations: We will start patient on gabapentin 100 mg 3 times a day, to use for a week. Then, if the patient continue having similar or recurrent headaches, she should be reevaluated in neurology clinic. We should avoid triptans at this time. ESR and CRP. (4) HTN (hypertension): Impression: The patient has history of hypertension, but was not on treatment. We will manage blood pressure as described above. (5) Leukemia: Impression: The patient carries diagnosis of leukemia, status post bone marrow transplant 5 years ago, in remission. The patient has been followed by specialist in [place] regularly. Plan Thank you for the consultation. History of Present Illness Reason for Consultation: Stroke like symptoms, s/p TNKase. Requesting Physician: Luzmaria Carmen Attending Physician: Mendez Vidal MD History of Present Illness The patient is a 77-year-old female, who was brought to emergency department this morning, after the patient had another episode of speech difficulty. Apparently, she began having unusual, left frontal headache the day before . On the day, she was eating with family, and suddenly had an episode of expressive speech difficulty. She was mumbling, and was not able to make words. She was having left frontal, unusual headache at that time as well. She was taken to the emergency department in [place], head CT, CT angiogram of head and neck, as well as brain MRI were reportedly unremarkable. The episode of expressive speech difficulty lasted for 25 minutes with total resolution. She reported no additional neurological symptoms. After the discharge, she was still having left frontal headache, with some nausea. She was discharged home on aspirin. She did not experience any speech difficulty or additional neurological symptoms until this morning. She was on the phone with other family members around 8 AM this morning. Then, around 830, family noticed that the patient was having similar expressive speech difficulty as before. She was unable to make words, but mumbling. There was no comprehension difficulty. They have not noticed any additional neurological symptoms. EMS was activated and the patient was brought to emergency department. Her blood pressure was elevated. The patient denied having any recent unusual stressors, head or neck trauma, history of migraines or similar speech difficulties, being on any new medication, or history of seizure or seizure-like activities. Telestroke neurologist was consulted. The patient was still symptomatic, and they decided to treat the patient with TNKase, which was initiated around 11 AM. The patient reports that her symptoms have been resolved in couple hours, without any recurrence. She still has left frontal headache. She was admitted to intensive care unit. Blood pressure has been lowered below 180 per protocol. Cardiac rhythm monitoring has been showing sinus rhythm. Brain MRI was just completed, which did not show any acute intracranial pathology. The patient had another set of head CT, CT angiogram of the head and neck in the emergency department this morning, which were unremarkable as well. She has no history of similar or different stroke symptoms in the past. She was treated in [place] 5 years ago, for leukopenia, status post bone marrow transplant, and she was told that she has been in remission. She passed bedside swallow evaluation. She has no residual neurological symptoms at this point other than ongoing left frontal moderate to severe headache, which has not been responsive to Tylenol. I have reviewed the patient's chart including imaging studies and visualized them personally. I have discussed the case with the patient and family and answered their questions in detail. Allergies Allergy/AdvReac Type Severity Reaction Status Date / Time No Known Allergies Allergy Unverified 07/29/22 13:09 Patient History Medical History HTN (hypertension) Leukemia No pertinent family history TIA (transient ischemic attack) Surgical History H/O bone marrow transplant Social History Smoking Status: Never smoker Hx Alcohol Use: No Hx Substance Use: No Preferred Language: Senegalese Communication Ability: Effective Shipping [employer] Receiving Associate Required: No Beliefs That Will Affect Care: None Current Living Situation: Alone Feels Safe at Home: Yes Safety Concerns: Feels Safe At This Time Assistive Devices: None Review of Systems Review of Systems: All systems reviewed & are unremarkable except as noted in HPI & below Physical Exam Physical Exam: General Examination: Constitutional: Well developed person in no acute distress. HEENT: Normal exam with inspection. CV: Hearth rhythm is regular. Neck: Supple, no carotid bruits. Lungs: Non-labored and comfortable breathing. Abdomen: Soft, non-tender, non-distended. Skin: No rash or ecchymosis. Extremities: No edema or cyanosis NEUROLOGICAL EXAMINATION: Mental Status: Alert and oriented to place, person and time. Cranial Nerves: II-XII are intact. No nystagmus. Funduscopy: Normal looking optic discs. Motor: 5/5 in all extremities without asymmetry. DTRs: 2+ all. No Babinski Tone: Normal without spasticity or rigidity. Sensory: Intact to all sensory modalities. Coordination: No dysmetria with FTN and HTS testing. Speech: Fluent. Comprehension is intact. Gait: Not assessed but was reportedly normal. Musculoskeletal: Normal muscle bulk, no atrophy. Results & Data ([facility]) Vital Signs (Past 12 Hours) Vital Signs Temp Pulse Pulse Resp BP BP Pulse Ox 07/29/22 14:00 36.6 C 76 20 143/87 H 94 07/29/22 13:15 82 16 170/78 H 95 07/29/22 13:30 36.7 C 77 20 156/82 H 95 07/29/22 13:00 36.7 C 74 14 133/104 H 94 07/29/22 12:45 36.6 C 76 15 176/84 H 96 07/29/22 13:00 36.6 C 74 14 133/104 H 94 07/29/22 12:30 07/29/22 12:30 36.8 C 18 160/104 H 97 07/29/22 12:15 36.7 C 18 169/104 H 94 07/29/22 12:00 36.8 C 18 102/76 95 07/29/22 11:45 36.9 C 18 167/98 H 97 07/29/22 11:30 72 24 93 07/29/22 11:30 169/105 H 95 07/29/22 11:15 70 15 94 07/29/22 11:15 164/99 H 07/29/22 11:11 72 18 94 07/29/22 11:11 159/119 H 07/29/22 11:00 07/29/22 11:10 71 16 94 07/29/22 11:04 76 22 93 07/29/22 11:04 154/91 H 07/29/22 11:00 71 21 95 07/29/22 11:00 170/102 H 07/29/22 10:58 75 25 H 94 07/29/22 10:58 171/101 H 07/29/22 10:50 72 19 94 07/29/22 10:40 68 20 96 07/29/22 10:39 70 21 93 07/29/22 10:39 167/102 H 07/29/22 10:30 76 20 07/29/22 10:20 72 21 07/29/22 11:11 159/119 H 07/29/22 10:11 169/74 H 07/29/22 10:11 69 17 95 07/29/22 10:10 15 07/29/22 09:54 76 21 07/29/22 10:10 16 169/74 H 97 07/29/22 10:05 36.8 C 18 146/78 H 97 O2 Del Method 07/29/22 14:00 Room Air 07/29/22 13:15 Room Air 07/29/22 13:30 Room Air 07/29/22 13:00 Room Air 07/29/22 12:45 Room Air 07/29/22 13:00 Room Air 07/29/22 12:30 Room Air 07/29/22 12:30 Room Air 07/29/22 12:15 Room Air 07/29/22 12:00 Room Air 07/29/22 11:45 07/29/22 11:30 07/29/22 11:30 07/29/22 11:15 07/29/22 11:15 07/29/22 11:11 07/29/22 11:11 07/29/22 11:00 Room Air 07/29/22 11:10 07/29/22 11:04 07/29/22 11:04 07/29/22 11:00 07/29/22 11:00 07/29/22 10:58 07/29/22 10:58 07/29/22 10:50 07/29/22 10:40 07/29/22 10:39 07/29/22 10:39 07/29/22 10:30 07/29/22 10:20 07/29/22 11:11 07/29/22 10:11 07/29/22 10:11 07/29/22 10:10 07/29/22 09:54 07/29/22 10:10 Room Air 07/29/22 10:05 Room Air Laboratory Results Laboratory Results - last 24 hr 07/29/22 07/29/22 07/29/22 09:52 09:57 09:57 WBC 9.88 RBC 4.31 Hgb 14.0 Hct 43.6 MCV 101.2 H MCH 32.5 MCHC 32.1 RDW Std Deviation 56.1 H RDW Coeff of Karl 14.9 H Plt Count 177 MPV 11.6 Immature Gran % (Auto) 3.7 Neut % (Auto) 73.5 Lymph % (Auto) 10.5 [place] % (Auto) 9.2 Eos % (Auto) 2.7 Baso % (Auto) 0.4 Neut # (Auto) 7.25 H Lymph # (Auto) 1.04 L [place] # (Auto) 0.91 H Eos # (Auto) 0.27 Baso # (Auto) 0.04 Immature Gran # (Auto) 0.37 H PT INR APTT PTT Ratio Sodium Potassium Chloride Carbon Dioxide Anion Gap BUN Creatinine Est Cr Clr Drug Dosing Est GFR ( Amer) Est GFR (Non-Af Amer) BUN/Creatinine Ratio Glucose POC Glucose 274 H Calcium Magnesium Total Bilirubin AST ALT Alkaline Phosphatase Troponin I High Sens Total Protein Albumin Globulin Albumin/Globulin Ratio Nasal Screen MRSA (PCR) SARS-CoV-2, RNA, NAAT Blood Type AB Positive Antibody Screen NEGATIVE 07/29/22 07/29/22 07/29/22 09:57 09:57 13:50 WBC RBC Hgb Hct MCV MCH MCHC RDW Std Deviation RDW Coeff of Karl Plt Count MPV Immature Gran % (Auto) Neut % (Auto) Lymph % (Auto) [place] % (Auto) Eos % (Auto) Baso % (Auto) Neut # (Auto) Lymph # (Auto) [place] # (Auto) Eos # (Auto) Baso # (Auto) Immature Gran # (Auto) PT 11.2 INR 1.1 APTT 27.3 PTT Ratio 1.0 Sodium 137 Potassium 4.3 Chloride 104 Carbon Dioxide 21 Anion Gap 12 H BUN 24 H Creatinine 1.96 H Est Cr Clr Drug Dosing 27.9 Est GFR ( Amer) 28.3 Est GFR (Non-Af Amer) 24.4 BUN/Creatinine Ratio 12.2 Glucose 259 H POC Glucose Calcium 9.4 Magnesium 1.8 Total Bilirubin 1.0 AST 36 ALT 22 Alkaline Phosphatase 54 Troponin I High Sens 13.3 Total Protein 6.7 Albumin 4.3 Globulin 2.4 L Albumin/Globulin Ratio 1.8 Nasal Screen MRSA (PCR) Negative SARS-CoV-2, RNA, NAAT Blood Type Antibody Screen 07/29/22 Unknown WBC RBC Hgb Hct MCV MCH MCHC RDW Std Deviation RDW Coeff of Karl Plt Count MPV Immature Gran % (Auto) Neut % (Auto) Lymph % (Auto) [place] % (Auto) Eos % (Auto) Baso % (Auto) Neut # (Auto) Lymph # (Auto) [place] # (Auto) Eos # (Auto) Baso # (Auto) Immature Gran # (Auto) PT INR APTT PTT Ratio Sodium Potassium Chloride Carbon Dioxide Anion Gap BUN Creatinine Est Cr Clr Drug Dosing Est GFR ( Amer) Est GFR (Non-Af Amer) BUN/Creatinine Ratio Glucose POC Glucose Calcium Magnesium Total Bilirubin AST ALT Alkaline Phosphatase Troponin I High Sens Total Protein Albumin Globulin Albumin/Globulin Ratio Nasal Screen MRSA (PCR) SARS-CoV-2, RNA, NAAT NEGATIVE Blood Type Antibody Screen Diagnostic Findings Chest X-Ray 07/29/22 09:52 XR chest 1V portable HISTORY: 77 years-old Female Stroke Like Symptoms acute strokelike symptoms COMPARISON: CTA neck of same day TECHNIQUE: Portable AP view of the chest FINDINGS: Cardiomediastinal and hilar silhouettes are within normal limits. Atheroscler osis of the aorta. No pneumothorax, pleural effusion, airspace consolidation or overt pulmonary edema. Degenerative changes of the shoulders and spine. Surgical anchor of the left humeral head. IMPRESSION: No acute process. ACT 112: Negative or not required by law. The above report was generated using voice recognition software. It may contain grammatical, syntax or spelling errors. Electronically signed by: Caleb Poe M.D. 07/29/2022 11:[address] 07/29/22 09:52 CT head/brain wo con CLINICAL HISTORY: 77 years-old Female with Stroke Like Symptoms. Acute strokelike symptoms TECHNIQUE: Multiple axial CT images of the head were obtained without contrast. A dose lowering technique was utilized adhering to the principles of ALARA. COMPARISON: CTA had and neck of same day FINDINGS: No acute intracranial hemorrhage, midline shift, intracranial mass, hydrocephalus, territorial ischemia or abnormal extra-axial collection. White matter hypodensities are suggestive of chronic microvascular ischemic disease. Calcifications of the falx cerebri. The calvarium is intact. Prior bilateral lens repair. Surgical anchor within the left humeral head. The paranasal sinuses, mastoid air cells, and middle ear cavities are clear. IMPRESSION: No acute intracranial abnormality. ACT 112: Negative or not required by law. The above report was generated using voice recognition software. It may contain grammatical, syntax or spelling errors. Electronically signed by: Caleb Poe M.D. 07/29/2022 10:43 AM Head CTA 07/29/22 09:52 CT angio neck with con, CT angio head w con CLINICAL HISTORY: 77 years-old Female with Stroke Like Symptoms. Acute strokelike symptoms COMPARISON STUDY: Head CT of same day TECHNIQUE: Following the IV administration of 105 amount of Optiray, CT angiogram of the head and neck was performed from the aortic arch to the skull apex. Images are reviewed in the axial, sagittal, and coronal planes. 3-D MIPS images are created and assessed. IV contrast was administered without complication. All measurements were calculated based on NASCET criteria. A dose lowering technique was utilized adhering to the principles of ALARA. CT DOSE: 1137.74 mGy.cm FINDINGS: Atherosclerosis of the thoracic aortic arch. Patency of the innominate and imag ed subclavian arteries. The common carotid arteries are widely patent. There is mild atherosclerotic plaque of the right carotid bulb resulting in less than 50% stenosis of the proximal right ICA. The middle and anterior cerebral arteries are widely patent. Dominant left vertebral artery. Duplicated V1 and proximal V2 segments of the right vertebral artery: 4 may single vertebral artery at the lev el of C4. The basilar and posterior cerebral arteries are patent. Mild luminal narrowing of the P1 segment of the right posterior cerebral artery. Cerebral venous sinuses are patent. No abnormal intracranial enhancement identified. No pneumothorax. The lung apices appear clear. Unremarkable soft tissues. Degenerative changes of the cervical spine. IMPRESSION:Unremarkable CTA of the head and neck. ACT 112: Negative or not required by law. The above report was generated using voice recognition software. It may contain grammatical, syntax or spelling errors. Electronically signed by: Caleb Poe M.D. 07/29/2022 10:43 AM Neck CTA 07/29/22 09:52 CT angio neck with con, CT angio head w con CLINICAL HISTORY: 77 years-old Female with Stroke Like Symptoms. Acute strokelike symptoms COMPARISON STUDY: Head CT of same day TECHNIQUE: Following the IV administration of 105 amount of Optiray, CT angiogram of the head and neck was performed from the aortic arch to the skull apex. Images are reviewed in the axial, sagittal, and coronal planes. 3-D MIPS images are created and assessed. IV contrast was administered without complicati on. All measurements were calculated based on NASCET criteria. A dose lowering technique was utilized adhering to the principles of ALARA. CT DOSE: 1137.74 mGy.cm FINDINGS: Atherosclerosis of the thoracic aortic arch. Patency of the innominate and imaged subclavian arteries. The common carotid arteries are widely patent. There is mild atherosclerotic plaque of the right carotid bulb resulting in less than 50% stenosis of the proximal right ICA. The middle and anterior cerebral arteries are widely patent. Dominant left vertebral artery. Duplicated V1 and proximal V2 segments of the right vertebral artery: 4 may single vertebral artery at the level of C4. The basilar and posterior cerebral arteries are patent. Mild luminal narrowing of the P1 segment of the right posterior cerebral artery. Cerebral venous sinuses are patent. No abnormal intracranial enhancement identified. No pneumothorax. The lung apices appear clear. Unremarkable soft tissues. Degenerative changes of the cervical spine. IMPRESSION:Unremarkable CTA of the head and neck. ACT 112: Negative or not required by law. The above report was generated using voice recognition software. It may contain grammatical, syntax or spelling errors. Electronically signed by: Caleb Poe M.D. 07/29/2022 10:43 AM Brain MRI 07/29/22 12:55 MR brain wo con HISTORY: 77 years-old Female CVA acute strokelike symptoms COMPARISON: Head CT of same day TECHNIQUE: Multiplanar multisequence MRI of the brain was obtained without the use of IV contrast FINDINGS: Diagnostic Tech localizer images demonstrate no gross extracranial abnormality. Midline structures are unremarkable. No restricted diffusion to suggest acute or subacute infarct. Degenerative changes of the imaged cervical spine. No acute intracranial hemorrhage, midline shift, abnormal extra axial collection, hydrocephalus or intracranial mass. Mild involutional changes with mild to moderate T2/FLAIR throughout the white matter. Cerebral venous sinuses and major arterial flow voids appear patent. The skull and soft tissues are unremarkable. Prior bilateral lens repair. Mastoid air cells and paranasal sinuses are clear. IMPRESSION: 1. No acute intracranial abnormality. No acute or subacute infarct. 2. Involutional changes with chronic microvascular ischemic disease. ACT 112: Negative or not required by law. The above report was generated using voice recognition software. It may contain grammatical, syntax or spelling errors. Electronically signed by: Caleb Poe M.D. 07/29/2022 3:14 PM
--- NOTE | 2022-07-29 17:39 | XCELERA ---
[id number]
--- NOTE | 2022-07-29 17:54 | Electrocardiogram Report ---
Test Reason : Blood Pressure : / mmHG Vent. Rate : 068 BPM Atrial Rate : 068 BPM P-R Int : 202 ms QRS Dur : 138 ms QT Int : 448 ms P-R-T Axes : 025 -23 141 degrees QTc Int : 476 ms Poor data quality, interpretation may be adversely affected Sinus rhythm with Premature atrial complexes Left bundle branch block Abnormal ECG No previous ECGs available Confirmed by Joselo Barrientos ([id number]) on 07/29/2022 5:53:33 PM Referred By: Confirmed By:Rodríguez Barrientos
[2022-07-29] MEDS: ICU Protocol for HYPERglycemia SCH ×2 (18:24→21:04)
[2022-07-29] MEDS ORDERED: FAMOTIDINE 20 MG in SYRINGE 3 ML IV ONE (20:22)
[2022-07-29] MEDS ORDERED: MAGNESIUM HYDROXIDE SUSP 30 ML UDC PO PRN (20:22)
[2022-07-29] MEDS: GABAPENTIN 100 MG CAP PO SCH (21:04)
--- NOTE | 2022-07-30 08:16 | Critical Care Progress Note ---
Date of Service July 30, 2022 Assessment & Plan (1) Thrombolytic medication administered within last 5 days: (2) CVA (cerebral vascular accident): (3) HTN (hypertension): (4) Cephalgia: Plan Impression: 77-year-old female with headache and strokelike symptoms. Her symptoms have been going on for 3 to 4 days and she had an initial evaluation in [place] which was unrevealing. Due to persistent symptoms, telestroke neurologist recommended thrombolytic administration and the patient is being observed in the ICU for bleeding complications post thrombolytics. Recommendations: --TIA S/p thrombolytics Continue with neurochecks -- Hypertension Continue with blood pressure medications --Cephalgia Likely from complex migraine Has been started on gabapentin by neurology which has helped --History of leukemia S/p bone marrow transplant approximately 5 years ago Follows up with peds. --Prophylaxis VTE: IPC GI: None Lines: Peripheral Diet: Regular Plan: In/out: -285, urine output 850 Patient will have another CAT scan to be done around 11 AM if that is negative then patient should be okay to be downgraded to medical floor Patient was on aspirin at home. Addition of Plavix should be thought of. Can resume atenolol Please note the above document was generated using voice recognition software. It may contain grammatical, syntax or spelling errors.Any formal questions or concerns about the content, text or information contained within the body of this dictation should be directly addressed to the provider for clarification. Admission and Anticipated Discharge Date Admission Date: July 29, 2022 Subjective Patient seen and examined at bedside. No acute distress, no adverse events overnight. Denies any blurry vision. Mild headache in the morning. No nausea vomiting Did have breakfast and was able to tolerate without any issues Denies any chest pain, no shortness of breath Review of Systems Review of Systems: All systems reviewed & are unremarkable except as noted in Subjective Physical Exam Physical Exam: Constitutional: No acute distress HEENT: EOMI, PERRLA Respiratory system: Good air entry bilaterally, no wheeze, no rhonchi, no crackles CVS: S1-S2 positive, no murmurs or gallops Abdomen: Soft, nontender, nondistended, positive bowel sounds x4 Extremities: +2 pulses bilaterally radialis/ dorsalis pedis, no cyanosis, no edema, 5 out of 5 strength bilateral upper extremity and left lower extremity, 4 out of 5 strength in the right lower extremity Neuro: Awake alert oriented x3 Psych: Normal mood and affect G/U: No Kerr Skin: no rashes, warm and dry Lymphatic: no cervical or axillary lymphadenopathy Results & Data Results & Data ([facility]) Vital Signs (Past 12 Hours) Vital Signs Temp Pulse Pulse Resp BP BP Pulse Ox 07/30/22 07:00 36.8 C 72 15 158/85 H 94 07/30/22 06:00 67 16 93 07/30/22 06:00 127/63 07/30/22 05:30 77 15 96 07/30/22 05:00 68 0 L 93 07/30/22 05:00 125/60 07/30/22 06:00 36.8 C 69 16 127/63 92 07/30/22 05:00 36.9 C 68 14 125/60 94 07/30/22 04:30 68 0 L 92 07/30/22 04:00 75 4 L 93 07/30/22 04:00 117/55 L 07/30/22 03:30 74 17 92 07/30/22 03:00 75 19 93 07/30/22 03:00 117/61 07/30/22 04:00 36.7 C 75 14 117/55 L 93 07/30/22 03:00 36.9 C 74 15 117/61 93 07/30/22 02:30 73 0 L 93 07/30/22 02:00 82 18 93 07/30/22 02:00 135/59 L 07/30/22 01:30 73 18 93 07/30/22 01:00 80 6 L 91 07/30/22 01:00 128/82 07/30/22 00:30 77 4 L 92 07/30/22 02:00 36.7 C 78 14 135/59 L 94 07/30/22 01:00 36.7 C 75 15 128/82 94 07/30/22 00:00 76 16 93 07/30/22 00:00 123/62 07/29/22 23:30 75 18 92 07/29/22 23:02 132/56 L 07/29/22 23:02 82 21 94 07/29/22 23:00 72 10 L 92 07/29/22 22:30 74 18 93 07/29/22 22:00 76 19 92 07/29/22 22:00 145/65 H 07/29/22 21:30 75 20 93 07/30/22 00:00 36.9 C 76 16 123/62 94 07/30/22 00:00 75 07/29/22 23:00 36.8 C 72 15 140/66 92 07/29/22 22:00 36.8 C 74 16 145/65 H 93 07/29/22 21:11 154/80 H 07/29/22 21:11 73 15 94 07/29/22 21:00 83 20 94 07/29/22 21:00 168/85 H 07/29/22 20:30 172/83 H 07/29/22 20:30 77 22 93 07/29/22 21:00 36.8 C 76 16 168/85 H 93 O2 Del Method 07/30/22 07:00 Room Air 07/30/22 06:00 07/30/22 06:00 07/30/22 05:30 07/30/22 05:00 07/30/22 05:00 07/30/22 06:00 Room Air 07/30/22 05:00 Room Air 07/30/22 04:30 07/30/22 04:00 07/30/22 04:00 07/30/22 03:30 07/30/22 03:00 07/30/22 03:00 07/30/22 04:00 Room Air 07/30/22 03:00 Room Air 07/30/22 02:30 07/30/22 02:00 07/30/22 02:00 07/30/22 01:30 07/30/22 01:00 07/30/22 01:00 07/30/22 00:30 07/30/22 02:00 Room Air 07/30/22 01:00 Room Air 07/30/22 00:00 07/30/22 00:00 07/29/22 23:30 07/29/22 23:02 07/29/22 23:02 07/29/22 23:00 07/29/22 22:30 07/29/22 22:00 07/29/22 22:00 07/29/22 21:30 07/30/22 00:00 Room Air 07/30/22 00:00 07/29/22 23:00 Room Air 07/29/22 22:00 Room Air 07/29/22 21:11 07/29/22 21:11 07/29/22 21:00 07/29/22 21:00 07/29/22 20:30 07/29/22 20:30 07/29/22 21:00 Room Air Laboratory Results 07/29/22 09:57 07/29/22 09:57 Coding Level of Care Code 60963 Subseq [facility]osp Care [facility] 3 Diagnoses Thrombolytic medication administered within last 5 days Z78.9 CVA (cerebral vascular accident) I63.9 CVA mechanism: unspecified HTN (hypertension) I10 Cephalgia R51.9 (1) CVA (cerebral vascular accident) CVA mechanism: unspecified Qualified Code(s): I63.9 - Cerebral infarction, unspecified
[2022-07-30] MEDS: GABAPENTIN 100 MG CAP PO SCH ×3 (10:04→20:28)
[2022-07-30] MEDS: ICU Protocol for HYPERglycemia SCH ×2 (10:05→12:46)
--- NOTE | 2022-07-30 12:19 | CT Scan Report ---
CT SCAN OF THE BRAIN WITHOUT IV CONTRAST CLINICAL HISTORY: Follow-up status post TPA COMPARISON STUDY: CT and MRI of the brain dated 07/29/2022 TECHNIQUE: Unenhanced axial CT scan of the brain is performed from the vertex to the skull base. A do se lowering technique was utilized adhering to the principles of ALARA. CT DOSE: 994.86 mGycm FINDINGS: Brain parenchyma: There is age-related involutional change noting moderate patchy subcortical and per iventricular microangiopathic disease. There is no hemorrhage, mass effect, or evidence of acute terr itorial ischemia by CT criteria. Puentes-white matter differentiation is preserved. No extra-axial fluid collection is seen. Ventricles, sulci, cisterns: Prominent secondary to involutional change. Intracranial vasculature: There is atherosclerotic calcification of the cavernous carotid and vertebr al arteries. Calvarium: Unremarkable. Sinuses and mastoids: The visualized paranasal sinuses are clear. The mastoid air cells are well pneu matized. Orbits: The bony orbits are grossly intact. There are bilateral ocular lens implants. IMPRESSION: There is no hemorrhage, mass effect, or evidence of acute territorial ischemia by CT luisito trevino. ACT 112: Negative or not required by law. Electronically signed by: Matteo Lee M.D. 07/30/2022 12:17 PM
[2022-07-30 12:55] LABS: Estimated Average Glucose 160 mg/dl; Hemoglobin A1C 7.2 % (4.5-5.6)
[2022-07-30 13:09] LABS: Cholesterol 198 mg/dl (0-200); HDL Cholesterol 24 mg/dl; Triglycerides 461 mg/dl (0-150)
[2022-07-30 13:19] LABS: Chol HDL Ratio 8.3 (0-5)
[2022-07-30] MEDS ORDERED: CARBOHYDRATES FOR HYPOGLYCEMIA PO PRN (14:26)
[2022-07-30] MEDS ORDERED: GLUCOSE 10 TAB/TUBE PO PRN (14:26)
[2022-07-30] MEDS ORDERED: GLUCOSE 40% GEL 15 GM TUBE PO PRN (14:26)
[2022-07-30] MEDS ORDERED: GLUCAGON FOR INJ 1 MG VIAL SQ PRN (14:26)
[2022-07-30] MEDS ORDERED: DEXTROSE 50% 50 ML SYRINGE IV PRN (14:26)
--- NOTE | 2022-07-30 14:53 | Pharmacy Report ---
- Date of Service July 30, 2022 - Pharmacy CVA/TIA Medication Review Medications to Prevent Stroke handout has been added to the patients discharge packet. Antiplatelet(s) * Aspirin 81mg daily Cholesterol * High intensity statin: atorvastatin 40 mg daily DVT Prophylaxis * SCDs Therapeutic Anticoagulation * No history of Afib/Aflutter noted Type 2 Diabetes * HbA1C 7.2%. Not prescribed an antidiabetic agent as an outpatient. Provider is aware to either prescribe a diabetes medication with proven CVD benefit at discharge or defer selection to outpatient provider due to familiarity with risks/benefits of such therapies.
[2022-07-30 14:55] LABS: Basophils # (auto) 0.03 K/uL (0-0.2); Basophils % (auto) 0.4 %; Eosinophils % (auto) 2.5 %; Hematocrit (blood only) 43.7 % (34.1-44.9); Hemoglobin 13.8 g/dl (12.0-16.0); Immature Granulocytes # (auto) 0.21 K/uL (0.00-0.02); Immature Granulocytes % (auto) 2.6 %; Lymphocytes # (auto) 0.53 K/uL (1.2-3.4); Lymphocytes % (auto) 6.6 %; Mean Corpuscular Hemoglobin 32.2 pg (25.0-34.0); Mean Corpuscular Hgb Conc 31.6 g/dL (32.0-36.0); Mean Corpuscular Volume 101.9 fL (80.0-100.0); Monocytes # (auto) 1.38 K/uL (0.24-0.82); Monocytes % (auto) 17.1 %; Neutrophils # (auto) 5.74 K/uL (1.4-6.5); Neutrophils % (auto) 70.8 %; Platelet Count 149 K/uL (130-400); RDW Coefficient of Variation 14.8 % (11.5-14.5); RDW Standard Deviation 55.7 fL (36.4-46.3); Red Blood Count 4.29 M/uL (3.93-5.22); White Blood Count 8.09 K/ul (4.8-10.8)
[2022-07-30 15:12] LABS: Albumin Globulin Ratio 1.6 (0.9-2); Albumin Level 4.1 gm/dl (3.4-5.0); BUN Creatinine Ratio 14.4 (10-20); Bilirubin,Total 0.7 mg/dl (0.2-1.0); Calcium 9.3 mg/dl (8.5-10.1); Creatinine Clr Calc Pharmacy 29.2 ml/min; Est GFR (African American) 29.9 ml/min; Est GFR (Non-African American) 25.8 ml/min; Globulin 2.5 gm/dl (2.5-4.0); Potassium 4.6 mmol/L (3.5-5.1); Total Protein 6.6 gm/dl (6.0-8.3)
[2022-07-30] MEDS: ATENOLOL 25 MG TABLET PO SCH (15:22)
[2022-07-30] MEDS: ATORVASTATIN 40 MG TAB PO SCH (15:22)
[2022-07-30] MEDS: INSULIN ASPART PER UNIT SC SCH ×2 (17:20→21:16)
--- NOTE | 2022-07-30 18:36 | Hospitalist Progress Note ---
Date of Service July 30, 2022 Assessment & Plan (1) Stroke-like symptoms: Plan: MRI brain without CVA - TIA vs. aborted stroke vs. complex migraine LKW initially reported to be 7:30 AM, 9:10 AM Admitted to ICU status post TNK [address] head no acute abnormality TTE -no cardiac source of emboli, otherwise unremarkable echocardiogram with LVEF 50 to 55% CTA of head and neck as above, no significant stenosis. No episodes of atrial fibrillation on telemetry CRP and ESR unremarkable for giant cell arteritis Aspirin 81 mg p.o. daily to start tomorrow Atorvastatin 40 mg p.o. at bedtime - unable to run LDL cholesterol due to hypertriglyceridemia, patient to establish with primary care provider to manage this Gabapentin started for possible migraine headache by neurology for 1 week. Will be reevaluated in neurology follow-up Planning on follow-up with [facility] neurology as an outpatient. (2) HTN (hypertension): Plan: Restart on atenolol 25 mg p.o. daily (3) Leukemia: Plan: History of, s/p bone marrow transplant in 2014. In remission, follows with [place] oncologist every 6 months for labs, routine follow-up. (4) Type 2 diabetes mellitus: Plan: New diagnosis for the patient. HbA1c 7.2. Will discuss SGLT 2 inhibitor versus GLP-1 for cardiovascular protection Novolog correction factor while here: --Goal BSG Range: Low 110 mg/dL, High 140 mg/dL --Correction Factor: 45 mg/dL/unit No carb ratio --BSGs ACHS if eating, q6h if npo (5) Hypertriglyceridemia: Plan: Atorvastatin as above (6) Elevated serum creatinine: Plan: Unknown baseline. Possible CKD. Patient is eating drinking well. Appears euvolemic on exam. No acute treatment needed at this time. Needs to establish with primary care provider to manage this. (7) TIA (transient ischemic attack): Plan VTE prophylaxis -deferred due to TNKase given yesterday Diet -type 2 diabetes, heart healthy Disposition - Admission and Anticipated Discharge Date Admission Date: July 29, 2022 Subjective Patient reports her symptoms completely resolved. No headache. No slurred speech. No extremity weakness. No change in hearing or vision. She reports not having a primary care doctor and no recent cholesterol testing. She follows up with her oncologist who has been doing her blood pressure management. Review of Systems Review of Systems: All systems reviewed & are unremarkable except as noted in Subjective Physical Exam Constitutional: WD/WN, vitals as above Eyes: PERRL, conjunctivae normal, anicteric sclerae ENMT: external ear and nose normal, oropharynx normal Neck: trachea midline, no thyromegaly Respiratory: normal respiratory effort, lungs clear to auscultation Cardiovascular: RRR, no murmur, no edema Gastrointestinal (Abdomen): normal bowel sounds, soft, nontender, no hepatosplenomegaly Musculoskeletal: no cyanosis or clubbing, extremities motor strength 5/5 Skin: no rashes, warm and dry Neurologic: moves all extremities and awake; no focal motor deficits and not confused Speech / Cognition: normal speech Motor/Sensory: no tremor and no pronator drift Psychiatric: A+Ox3, euthymic affect Results & Data Results & Data ([facility]) Vital Signs (Past 12 Hours) Vital Signs Temp Pulse Pulse Resp BP BP Pulse Ox 07/30/22 15:00 36.6 C 76 22 150/78 H 94 07/30/22 14:00 79 25 H 07/30/22 13:00 84 20 97 07/30/22 13:00 129/71 07/30/22 12:04 83 19 07/30/22 12:04 136/77 07/30/22 12:02 84 25 H 07/30/22 08:00 07/30/22 12:00 36.5 C 84 16 136/77 96 07/30/22 11:30 83 26 H 94 07/30/22 11:15 79 17 91 07/30/22 11:14 139/68 07/30/22 11:14 76 18 91 07/30/22 11:13 88 19 07/30/22 10:00 36.6 C 75 19 133/75 93 07/30/22 09:00 36.5 C 80 22 142/63 H 93 07/30/22 08:00 36.5 C 78 18 152/81 H 94 07/30/22 07:00 36.8 C 72 15 158/85 H 94 O2 Del Method 07/30/22 15:00 Room Air 07/30/22 14:00 07/30/22 13:00 07/30/22 13:00 07/30/22 12:04 07/30/22 12:04 07/30/22 12:02 07/30/22 08:00 Room Air 07/30/22 12:00 Room Air 07/30/22 11:30 07/30/22 11:15 07/30/22 11:14 07/30/22 11:14 07/30/22 11:13 07/30/22 10:00 Room Air 07/30/22 09:00 Room Air 07/30/22 08:00 Room Air 07/30/22 07:00 Room Air PG Care Time/CCT Total # of Minutes Spent Total Time Spent with Patient: Total time spent is greater than 50% in coordination of care (as documented) at patient's floor/unit and/or counseling patient: Coding Level of Care Code 94006 Subseq Hosp Care Lvl 3 Diagnoses Stroke-like symptoms R29.90 HTN (hypertension) I10 Leukemia C95.90 Type 2 diabetes mellitus E11.9 Hypertriglyceridemia E78.1 Elevated serum creatinine R79.89 TIA (transient ischemic attack) G45.9
--- NOTE | 2022-07-30 18:53 | Neurology Progress Note ---
Date of Service July 30, 2022 Assessment & Plan (1) Stroke-like symptoms: Plan: Impression: The patient has had 2 episodes of expressive speech difficulty, and received TNKase this morning. She has been suffering from unusual, left frontal headache for last 4 days. She denies having similar headaches or diagnosis of migraine attacks in the past. Imaging studies during each events were unremarkable including brain MRIs. Based on negative history, migraine considered unlikely, however, based on negative imaging studies, complex migraine as well as TIA should be considered in differential. No residual neurological deficit. Recommendations: Repeat head CT is negative. Continue on aspirin 81 mg daily. Lipid panel is reviewed. Lipitor 40 mg qhs. Goal LDL level is lower than 70. ESR and CRP, to investigate for giant cell arteritis.--pending Management of hypertension. Blood pressure should be lowered gradually with goal of lower than 130/80. We should keep blood sugar within normal range. Hearth healthy diet. If the patient stays stable, she can be discharged home tomorrow. Follow-up with neurology clinic. I have contacted with [facility] neurology to set up an appointment. (2) Thrombolytic medication administered within last 5 days: Plan: Impression: As seen above. Patient received thrombolytic treatment yesterday. (3) Cephalgia: Plan: Impression: The patient has no [id number] headache syndromes including migraines or associated neurological symptoms to suggest complex migraine. She has been suffering from unusual, left frontal moderate headache, with and without nausea for last 4 days. Complex migraine is considered unlikely based on the patient's negative history, however, based on negative imaging studies, new onset complex migraine should be considered in differential. We should rule out vasculitic process, primarily temporal arteritis which is unlikely based on normal temporal artery pulses. Recommendations: Continue on gabapentin 100 mg 3 times a day, to use for a week. Then, if the patient continue having similar or recurrent headaches, she should be reevaluated in neurology clinic. We should avoid triptans. Prn tylenol or Exedrine migraine but no more than 2- 3 days in a week. ESR and CRP. (4) HTN (hypertension): Plan: Impression: The patient has history of hypertension, but was not on treatment. We will manage blood pressure as described above. (5) Leukemia: Plan: Impression: The patient carries diagnosis of leukemia, status post bone marrow transplant 5 years ago, in remission. The patient has been followed by specialist in [place] regularly. Plan We will sign off. Admission and Anticipated Discharge Date Admission Date: July 29, 2022 Subjective Patient seen and examined at bedside. Repeat head CT today did not show any hemorrhagic conversion. Her headache has been improved on gabapentin, with slight recurrence this evening. She has not had any neurological symptoms including speech disturbance. Aspirin and Lipitor were initiated after repeat head CT. Cardiac monitoring has been showing sinus rhythm. She eats and sleeps well. She has no difficulty with ambulation. Review of Systems Review of Systems: All systems reviewed & are unremarkable except as noted in Subjective Physical Exam Physical Exam: General Examination: Constitutional: Well developed person in no acute distress. HEENT: Normal exam with inspection. CV: Hearth rhythm is regular. Neck: Supple, no carotid bruits. Lungs: Non-labored and comfortable breathing. Abdomen: Soft, non-tender, non-distended. Skin: No rash or ecchymosis. Extremities: No edema or cyanosis NEUROLOGICAL EXAMINATION: Mental Status: Alert and oriented to place, person and time. Cranial Nerves: II-XII are intact. No nystagmus. Funduscopy: Normal looking optic discs. Motor: 5/5 in all extremities without asymmetry. DTRs: 2+ all. No Babinski Tone: Normal without spasticity or rigidity. Sensory: Intact to all sensory modalities. Coordination: No dysmetria with FTN and HTS testing. Speech: Fluent. Comprehension is intact. Gait: Not assessed but was reportedly normal. Musculoskeletal: Normal muscle bulk, no atrophy. Results & Data ([facility]) Vital Signs (Past 12 Hours) Vital Signs Temp Pulse Pulse Resp BP BP Pulse Ox 07/30/22 15:00 36.6 C 76 22 150/78 H 94 07/30/22 14:00 79 25 H 07/30/22 13:00 84 20 97 07/30/22 13:00 129/71 07/30/22 12:04 83 19 07/30/22 12:04 136/77 07/30/22 12:02 84 25 H 07/30/22 08:00 07/30/22 12:00 36.5 C 84 16 136/77 96 07/30/22 11:30 83 26 H 94 07/30/22 11:15 79 17 91 07/30/22 11:14 139/68 07/30/22 11:14 76 18 91 07/30/22 11:13 88 19 07/30/22 10:00 36.6 C 75 19 133/75 93 07/30/22 09:00 36.5 C 80 22 142/63 H 93 07/30/22 08:00 36.5 C 78 18 152/81 H 94 07/30/22 07:00 36.8 C 72 15 158/85 H 94 O2 Del Method 07/30/22 15:00 Room Air 07/30/22 14:00 07/30/22 13:00 07/30/22 13:00 07/30/22 12:04 07/30/22 12:04 07/30/22 12:02 07/30/22 08:00 Room Air 07/30/22 12:00 Room Air 07/30/22 11:30 07/30/22 11:15 07/30/22 11:14 07/30/22 11:14 07/30/22 11:13 07/30/22 10:00 Room Air 07/30/22 09:00 Room Air 07/30/22 08:00 Room Air 07/30/22 07:00 Room Air Laboratory Results Laboratory Results - last 24 hr 07/29/22 07/30/22 07/30/22 20:42 12:20 12:20 WBC RBC Hgb Hct MCV MCH MCHC RDW Std Deviation RDW Coeff of Karl Plt Count MPV Immature Gran % (Auto) Neut % (Auto) Lymph % (Auto) Rains % (Auto) Eos % (Auto) Baso % (Auto) Neut # (Auto) Lymph # (Auto) Rains # (Auto) Eos # (Auto) Baso # (Auto) Immature Gran # (Auto) Sodium Potassium Chloride Carbon Dioxide Anion Gap BUN Creatinine Est Cr Clr Drug Dosing Est GFR ( Amer) Est GFR (Non-Af Amer) BUN/Creatinine Ratio Glucose POC Glucose 142 H Estimat Average Glucose 160 Hemoglobin A1c 7.2 H Calcium Total Bilirubin AST ALT Alkaline Phosphatase Total Protein Albumin Globulin Albumin/Globulin Ratio Triglycerides 461 H Cholesterol 198 LDL Cholesterol, Calc TNP VLDL Cholesterol, Calc TNP HDL Cholesterol 24 Cholesterol/HDL Ratio 8.3 H 07/30/22 07/30/22 07/30/22 12:24 12:24 16:34 WBC 8.09 RBC 4.29 Hgb 13.8 Hct 43.7 MCV 101.9 H MCH 32.2 MCHC 31.6 L RDW Std Deviation 55.7 H RDW Coeff of Karl 14.8 H Plt Count 149 MPV 12.0 Immature Gran % (Auto) 2.6 Neut % (Auto) 70.8 Lymph % (Auto) 6.6 Rains % (Auto) 17.1 Eos % (Auto) 2.5 Baso % (Auto) 0.4 Neut # (Auto) 5.74 Lymph # (Auto) 0.53 L Rains # (Auto) 1.38 H Eos # (Auto) 0.20 Baso # (Auto) 0.03 Immature Gran # (Auto) 0.21 H Sodium 136 Potassium 4.6 Chloride 104 Carbon Dioxide 24 Anion Gap 8 BUN 27 H Creatinine 1.87 H Est Cr Clr Drug Dosing 29.2 Est GFR ( Amer) 29.9 Est GFR (Non-Af Amer) 25.8 BUN/Creatinine Ratio 14.4 Glucose 218 H POC Glucose 145 H Estimat Average Glucose Hemoglobin A1c Calcium 9.3 Total Bilirubin 0.7 AST 36 ALT 26 Alkaline Phosphatase 54 Total Protein 6.6 Albumin 4.1 Globulin 2.5 Albumin/Globulin Ratio 1.6 Triglycerides Cholesterol LDL Cholesterol, Calc VLDL Cholesterol, Calc HDL Cholesterol Cholesterol/HDL Ratio Diagnostic Findings Chest X-Ray 07/29/22 09:52 XR chest 1V portable HISTORY: 77 years-old Female Stroke Like Symptoms acute strokelike symptoms COMPARISON: CTA neck of same day TECHNIQUE: Portable AP view of the chest FINDINGS: Cardiomediastinal and hilar silhouettes are within normal limits. Atheroscleros is of the aorta. No pneumothorax, pleural effusion, airspace consolidation or overt pulmonary edema. Degenerative changes of the shoulders and spine. Surgical anchor of the left humeral head. IMPRESSION: No acute process. ACT 112: Negative or not required by law. The above report was generated using voice recognition software. It may contain grammatical, syntax or spelling errors. Electronically signed by: Caleb Poe M.D. 07/29/2022 11:[address] 07/29/22 09:52 CT head/brain wo con CLINICAL HISTORY: 77 years-old Female with Stroke Like Symptoms. Acute strokelike symptoms TECHNIQUE: Multiple axial CT images of the head were obtained without contrast. A dose lowering technique was utilized adhering to the principles of ALARA. COMPARISON: CTA had and neck of same day FINDINGS: No acute intracranial hemorrhage, midline shift, intracranial mass, hydrocephalus, territorial ischemia or abnormal extra-axial collection. White matter hypodensities are suggestive of chronic microvascular ischemic disease. Calcifications of the falx cerebri. The calvarium is intact. Prior bilateral lens repair. Surgical anchor within the left humeral head. The paranasal sinuses, mastoid air cells, and middle ear cavities are clear. IMPRESSION: No acute intracranial abnormality. ACT 112: Negative or not required by law. The above report was generated using voice recognition software. It may contain grammatical, syntax or spelling errors. Electronically signed by: Caleb Poe M.D. 07/29/2022 10:43 AM Head CTA 07/29/22 09:52 CT angio neck with con, CT angio head w con CLINICAL HISTORY: 77 years-old Female with Stroke Like Symptoms. Acute strokelike symptoms COMPARISON STUDY: Head CT of same day TECHNIQUE: Following the IV administration of 105 amount of Optiray, CT angiogram of the head and neck was performed from the aortic arch to the skull apex. Images are reviewed in the axial, sagittal, and coronal planes. 3-D MIPS images are created and assessed. IV contrast was administered without complication. All measurements were calculated based on NASCET criteria. A dose lowering technique was utilized adhering to the principles of ALARA. CT DOSE: 1137.74 mGy.cm FINDINGS: Atherosclerosis of the thoracic aortic arch. Patency of the innominate and imaged subclavian arteries. The common carotid arteries are widely patent. There is mild atherosclerotic plaque of the right carotid bulb resulting in less than 50% stenosis of the proximal right ICA. The middle and anterior cerebral arteries are widely patent. Dominant left vertebral artery. Duplicated V1 and proximal V2 segments of the right vertebral artery: 4 may single vertebral artery at the level of C4. The basilar and posterior cerebral arteries are patent. Mild luminal narrowing of the P1 segment of the right posterior cerebral artery. Cerebral venous sinuses are patent. No abnormal intracranial enhancement identified. No pneumothorax. The lung apices appear clear. Unremarkable soft tissues. Degenerative changes of the cervical spine. IMPRESSION:Unremarkable CTA of the head and neck. ACT 112: Negative or not required by law. The above report was generated using voice recognition software. It may contain grammatical, syntax or spelling errors. Electronically signed by: Caleb Poe M.D. 07/29/2022 10:43 AM Neck CTA 07/29/22 09:52 CT angio neck with con, CT angio head w con CLINICAL HISTORY: 77 years-old Female with Stroke Like Symptoms. Acute strokelike symptoms COMPARISON STUDY: Head CT of same day TECHNIQUE: Following the IV administration of 105 amount of Optiray, CT angiogram of the head and neck was performed from the aortic arch to the skull apex. Images are reviewed in the axial, sagittal, and coronal planes. 3-D MIPS images are created and assessed. IV contrast was administered without complication. All measurements were calculated based on NASCET criteria. A dose lowering technique was utilized adhering to the principles of ALARA. CT DOSE: 1137.74 mGy.cm FINDINGS: Atherosclerosis of the thoracic aortic arch. Patency of the innominate and imaged subclavian arteries. The common carotid arteries are widely patent. There is mild atherosclerotic plaque of the right carotid bulb resulting in less than 50% stenosis of the proximal right ICA. The middle and anterior cerebral arteries are widely patent. Dominant left vertebral artery. Duplicated V1 and proximal V2 segments of the right vertebral artery: 4 may single vertebral artery at the level of C4. The basilar and posterior cerebral arteries are patent. Mild luminal narrowing of the P1 segment of the right posterior cerebral artery. Cerebral venous sinuses are patent. No abnormal intracranial enhancement identified. No pneumothorax. The lung apices appear clear. Unremarkable soft tissues. Degenerative changes of the cervical spine. IMPRESSION:Unremarkable CTA of the head and neck. ACT 112: Negative or not required by law. The above report was generated using voice recognition software. It may contain grammatical, syntax or spelling errors. Electronically signed by: Caleb Poe M.D. 07/29/2022 10:43 AM Brain MRI 07/29/22 12:55 MR brain wo con HISTORY: 77 years-old Female CVA acute strokelike symptoms COMPARISON: Head CT of same day TECHNIQUE: Multiplanar multisequence MRI of the brain was obtained without the use of IV contrast FINDINGS: Bl[employer] localizer images demonstrate no gross extracranial abnormality. Midline structures are unremarkable. No restricted diffusion to suggest acute or subacute infarct. Degenerative changes of the imaged cervical spine. No acute intracranial hemorrhage, midline shift, abnormal extra axial collection, hydrocephalus or intracranial mass. Mild involutional changes with mild to moderate T2/FLAIR throughout the white matter. Cerebral venous sinuses and major arterial flow voids appear patent. The skull and soft tissues are unremarkable. Prior bilateral lens repair. Mastoid air cells and paranasal sinuses are clear. IMPRESSION: 1. No acute intracranial abnormality. No acute or subacute infarct. 2. Involutional changes with chronic microvascular ischemic disease. ACT 112: Negative or not required by law. The above report was generated using voice recognition software. It may contain grammatical, syntax or spelling errors. Electronically signed by: Caleb Poe M.D. 07/29/2022 3:[address] 07/29/22 12:55 CT SCAN OF THE BRAIN WITHOUT IV CONTRAST CLINICAL HISTORY: Follow-up status post TPA COMPARISON STUDY: CT and MRI of the brain dated 07/29/2022 TECHNIQUE: Unenhanced axial CT scan of the brain is performed from the vertex to the skull base. A dose lowering technique was utilized adhering to the principles of ALARA. CT DOSE: 994.86 mGycm FINDINGS: Brain parenchyma: There is age-related involutional change noting moderate patchy subcortical and periventricular microangiopathic disease. There is no hemorrhage, mass effect, or evidence of acute territorial ischemia by CT criteria. Puentes-white matter differentiation is preserved. No extra-axial fluid collection is seen. Ventricles, sulci, cisterns: Prominent secondary to involutional change. Intracranial vasculature: There is atherosclerotic calcification of the cavernous carotid and vertebral arteries. Calvarium: Unremarkable. Sinuses and mastoids: The visualized paranasal sinuses are clear. The mastoid air cells are well pneumatized. Orbits: The bony orbits are grossly intact. There are bilateral ocular lens implants. IMPRESSION: There is no hemorrhage, mass effect, or evidence of acute territorial ischemia by CT criteria. ACT 112: Negative or not required by law. Electronically signed by: Matteo Lee M.D. 07/30/2022 12:17 PM
[2022-07-31] MEDS: INSULIN ASPART PER UNIT SC SCH ×3 (08:25→17:51)
[2022-07-31] MEDS: ATORVASTATIN 40 MG TAB PO SCH (08:25)
[2022-07-31] MEDS: GABAPENTIN 100 MG CAP PO SCH ×2 (08:26→13:31)
[2022-07-31] MEDS: ATENOLOL 25 MG TABLET PO SCH (08:27)
[2022-07-31] MEDS ORDERED: ASPIRIN 81 MG ECTAB PO SCH (09:00)
[2022-07-31 16:11] LABS: BUN Creatinine Ratio 16.3 (10-20); Creatinine Clr Calc Pharmacy 30.1 ml/min; Est GFR (African American) 31.8 ml/min; Est GFR (Non-African American) 27.4 ml/min; Potassium 4.4 mmol/L (3.5-5.1)
--- NOTE | 2022-07-31 17:07 | Discharge Summary ---
Date of Service July 31, 2022 Admission HPI Per Admitting Provider Mary Ann Louie is a 77-year-old female with past medical history significant for leukemia s/p bone marrow transplant 5 years ago currently in remission, hypertension, and TIA earlier this week who presents today with complaints of slurred speech . 3 days ago on she had a left frontal headache and slurred speech and was seen at [facility]. She was kept overnight for observation in the ED, CT scan and MRI were negative for CVA. She continued to have a headache, now located posteriorly with associated nausea and mild dizziness on occasion, and had an episode of facial droop and slurred speech this morning. LKW 0730 this morning, patient was speaking with her family on the phone and seemed in her normal state of health, and then around 0717-1157 is 1 slurred speech was noted. Describes a sense of knowing what she wants to say, but not able to "use her words ", more consistent with a dysarthria than an apraxia or aphasia. Without any numbness, weakness, tingling. No swallowing difficulties, visual changes. At the time of my visit, she feels her speech is near her baseline. Telestroke neurologist was consulted, recommending TNKase, which is administered at 1104. She presented today hypertensive, SBP [id number], DBP 70-120 since arrival, she did receive 5 mg IV labetalol at 1100. Head CT negative for hemorrhage, territorial ischemia or extra-axial collection. Head/neck CTA unremarkable. Labs significant for creatinine 1.96, GFR 24, no baseline labs for comparison. Glucose elevated to 259. CBC unremarkable, without electrolyte abnormalities or transaminitis. Trope 13.3. Principal Diagnosis Aborted stroke versus transient ischemic attack versus complex migraine High triglyceride levels Type 2 diabetes Elevated creatinine Discharge Exam Constitutional WD/WN, vitals as above Respiratory normal respiratory effort, lungs clear to auscultation Cardiovascular RRR, no murmur, no edema Gastrointestinal (Abdomen) normal bowel sounds, soft, nontender, no hepatosplenomegaly Musculoskeletal no cyanosis or clubbing, extremities motor strength 5/5 Skin no rashes, warm and dry Neurologic moves all extremities and awake; not confused Psychiatric A+Ox3, euthymic affect Discharge Data Allergies Allergy/AdvReac Type Severity Reaction Status Date / Time No Known Allergies Allergy Unverified 07/29/22 13:09 Consultations 07/29/22 11:11 ED Decision to Admit Stat 07/29/22 12:55 Consult [employer]ness [employer] Handicapper Routine Consult Neurology Routine Ordered Studies 07/29/22 09:52 CT angio head w con Stat CT angio neck with con Stat IMPRESSION:Unremarkable CTA of the head and neck. CT head/brain wo con Stat IMPRESSION: No acute intracranial abnormality. 07/29/22 12:55 CT head/brain wo con Routine IMPRESSION: There is no hemorrhage, mass effect, or evidence of acute territorial ischemia by CT criteria. MR brain wo con Routine IMPRESSION: 1. No acute intracranial abnormality. No acute or subacute infarct. 2. Involutional changes with chronic microvascular ischemic disease. Diabetes Follow up Diabetes Follow-up Needed for Newly Diagnosed Diabetes Hospital Course (1) Stroke-like symptoms: Mary Ann Louie is a 77 year old female admitted to [facility] from July 29 to 2021 due to slurred speech. She was seen as a stroke alert and received TNKase in the emergency room. She was observed overnight in the intensive care unit with repeat CT head in the morning showing no intracranial bleed. Brain MRI did not show an acute stroke. This leaves possible diagnoses of possibility of aborted stroke due to TNKase, transient ischemic attack (mini stroke) or complex migraine. She was reviewed by neurology and recommended starting gabapentin 100 mg 3 times a day for another 5 days to treat for complex migraine although given lack of history, this is considered less likely. CT angiograms and echocardiogram did not show a cause for stroke/TIA. No atrial fibrillation was seen on telemetry. She was started on aspirin and atorvastatin for stroke risk reduction. Triglycerides levels were 461 mg/dL therefore her cholesterol levels were unmeasurable. [facility] neurology were contacted by our work and family life consultant neurologist to set up an appointment for follow up. She was noted to be newly diabetic with HbA1c 7.2. Given her current renal function recommended starting low dose glipizide for this. If her renal function improves consider SGLT2 inhibitors. We also discussed GLP-1 agonist such as Rybelsus which would need insurance preauthorization and recommended following up with her primary care provider to see if this could be prescribed. She was also noted to have a stable elevated creatinine (1.78 on day of discharge) which is concerning for chronic kidney disease. She was advised to follow up with her primary care provider regarding this as we have no prior labs for comparison. (2) HTN (hypertension): (3) Leukemia: (4) Type 2 diabetes mellitus: (5) Hypertriglyceridemia: (6) Elevated serum creatinine: (7) TIA (transient ischemic attack): Total Time Total Time Spent Total Time Spent (In Minutes): 50 Discharge Plan Discharge Items Patient Disposition: Home - Self-Care Reason For Visit: CVA Discharge Diagnosis: Aborted stroke versus transient ischemic attack versus complex migraine High triglyceride levels Type 2 diabetes Elevated creatinine Activity: Resume your previous activity Non-emergency contact: Primary Care Provider Call non-emergency contact if: you have any medication questions and your symptoms worsen Follow-up/Referrals: Madhav Berry [Primary Care Provider] - (1 week hospital follow-up) La Caputo MD [Physician] - (TIA follow-up) Diet: Carb Consistent or DM2 and Heart Healthy Addtl Attending Provider Instructions: You were admitted to [facility] from July 29 to 2021 due to slurred speech. You were seen as a stroke alert and received TNKase in the emergency room. You were observed overnight in the intensive care unit with repeat CT head in the morning showing no intracranial bleed. Brain MRI did not show an acute stroke. This leaves the possibility of aborted stroke due to TNKase, transient ischemic attack (mini stroke) or complex migraine. You are reviewed by neurology and recommended starting gabapentin 100 mg 3 times a day for another 5 days to treat for complex migraine although given lack of history, this is considered less likely. CT angiograms and echocardiogram did not show a cause for stroke/TIA. No atrial fibrillation was seen on telemetry. You were started on aspirin and atorvastatin for stroke risk reduction. Triglycerides (fatty acid) levels so high your cholesterol could not be measured. [facility] neurology were contacted by our work and family life consultant neurologist to set up an appointment. If you do not hear anything in the next week please call the number above to set up an appointment. Your HbA1c was elevated consistent with type 2 diabetes. Given your current renal function recommend starting glipizide as prescribed for this. If your renal function improves consider SGLT2 inhibitors. We discussed GLP-1 agonist such as Rybelsus which would need insurance preauthorization and recommend discussing this with your primary care physician on follow-up. You were noted to have an elevated creatinine which is concerning for chronic kidney disease. Recommend following up with your primary care physician for ongoing management of this. Pending Studies at Discharge: No Stand-Alone Forms: My [facility], Smoking Cessation, Medications to Prevent Stroke Medications and DC Order Prescriptions: New atorvastatin 40 mg tablet 40 mg PO DAILY Qty: 30 0RF (DME) blood-glucose meter [OneTouch Verio Meter] Misc See Rx Instructions .Route Qty: 1 0RF Rx Instructions: As directed (DME) OneTouch Verio test strips Strip See Rx Instructions .Route Qty: 100 0RF Rx Instructions: Once daily (DME) lancets [OneTouch Delica Lancets] 33 gauge misc See Rx Instructions .Route Qty: 100 0RF Rx Instructions: Once daily glipizide 2.5 mg tablet extended release 24hr 2.5 mg PO DAILY Qty: 30 0RF gabapentin 100 mg capsule 100 mg PO TID 5 Days Qty: 15 0RF Continued aspirin 81 mg Tablet 81 mg PO DAILY atenolol 25 mg tablet 25 mg PO QAM Discharge Orders: Discharge Order (Routine); Ordered 07/31/22 Ordered By: Bassam Kilgore/Other Patient Handouts: TIA Dc, Blood Sugar Check Steps, Metabolic Syndrome, ED Diet: Diabetes Admission Data Admit Date/Time: 07/29/22 12:03 Attending Provider: Bassam Smith Admit Provider: Mendez Vidal Primary Care Provider: Madhav Berry Other Providers: Mendez Vidal ; Nathanael Kim ; Lee Bustilol Other Interventions: Discharge Summary Assessment (RN) Last Done: 07/31/22 17:12 Coding Level of Care Code D/C DAY MANAGEMENT >30 MINS Diagnoses Stroke-like symptoms R29.90 HTN (hypertension) I10 Leukemia C95.90 Type 2 diabetes mellitus E11.9 Hypertriglyceridemia E78.1 Elevated serum creatinine R79.89 TIA (transient ischemic attack) G45.9
== END 2022-07-31 18:15 | disposition home or self-care (01) | DRG 62 ==
LOC: ED 09:37 → 1E 12:03 → SUATTDRO 12:03 → 1E 12:30 → 2N 07-30 20:24